=== PATIENT | female | born 1930 | race Caucasian/White ===

== ENCOUNTER 2017-07-15 15:44 | Emergency (ER) | payer MEDICARE, OTHER ==
[~2017-07-15] VITALS: Ht 162.6 cm; Wt 90.9 kg
[~2017-07-15 15:44] MED LIST: GABA-530 PO; VALA10002 PO
[2017-07-15 18:01] LABS: C-REACTIVE PROTEIN 0.13 MG/DL (0.0-0.5)
[2017-07-15] MEDS ORDERED: CEPH500C5 PO (18:24)
[2017-07-15 18:34] VITALS: BP 139/72
== END 2017-07-15 18:36 | disposition home or self-care (01) ==
LOC: ER 15:45
DX: L03.116 Cellulitis of left lower limb (principal); I83.92 Asymptomatic varicose veins of left lower extremity; E11.9 Type 2 diabetes mellitus without complications; I10 Essential (primary) hypertension; I48.91 Unspecified atrial fibrillation; G89.29 Other chronic pain; Z88.2 Allergy status to sulfonamides; Z88.6 Allergy status to analgesic agent; Z88.1 Allergy status to other antibiotic agents; Z88.5 Allergy status to narcotic agent; Z88.8 Allergy status to other drugs, medicaments and biological substances
CPT/HCPCS: 36415; 73610; 84145; 84550; 86140; 93971; 99285

== ENCOUNTER 2018-03-08 23:25 | Emergency (ER) | payer MEDICARE, OTHER ==
[~2018-03-08] VITALS: Ht 162.6 cm; Wt 78.0 kg
[~2018-03-08 23:25] MED LIST changes: +CEPH500C5 PO
[2018-03-09 00:48] LABS: BASOPHILS # (AUTO) 0.1 X10'3 (0-0.2); BASOPHILS % (AUTO) 0.7 % (0-1); EOSINOPHILS # (AUTO) 0.5 X10'3 (0-0.9); EOSINOPHILS % (AUTO) 5.7 % (0-6); HEMATOCRIT 42.3 % (35.0-45.0); HEMOGLOBIN 13.7 g/dl (12.0-16.0); LYMPHOCYTES # (AUTO) 1.8 X10'3 (1.1-4.8); LYMPHOCYTES % (AUTO) 20.4 % (21-51); MEAN CORPUSCULAR HEMOGLOBIN 30.3 PG (27.0-31.0); MEAN CORPUSCULAR HGB CONC 32.5 % (33.0-36.5); MEAN CORPUSCULAR VOLUME 93.3 FL (78-98); MONOCYTES # (AUTO) 0.9 X10'3 (0-0.9); MONOCYTES % (AUTO) 10.2 % (2-12); NEUTROPHILS # (AUTO) 5.4 X10'3 (1.8-7.7); PLATELET COUNT 195 X10'3 (140-440); RED BLOOD COUNT 4.54 X10'6 (4.20-5.60); RED CELL DISTRIBUTION WIDTH 12.5 % (11.5-14.5); WHITE BLOOD COUNT 8.7 X10'3 (4.5-11.0)
[2018-03-09 00:56] LABS: INR 1.1 INR; PROTHROMBIN TIME 11.3 SECONDS (9.0-12.0)
[2018-03-09 01:00] LABS: ALANINE AMINOTRANSFERASE 22 U/L (12-78); ALBUMIN 3.6 G/DL (3.4-5.0); ALBUMIN/GLOBULIN RATIO 1.1 (1.1-1.5); ALKALINE PHOSPHATASE 101 IU/L (46-116); ANION GAP 10 (8-16); ASPARTATE AMINO TRANSFERASE 18 U/L (10-37); BILIRUBIN,TOTAL 0.9 MG/DL (0.1-1.0); BLOOD UREA NITROGEN 19 MG/DL (7-18); CALCIUM 9.4 MG/DL (8.5-10.1); CHLORIDE 104 MMOL/L (99-107); CREATININE 0.73 MG/DL (0.40-0.90); GLUCOSE 207 MG/DL (70-104); POTASSIUM 4.2 MMOL/L (3.5-5.1); SODIUM 139 MMOL/L (135-145); TOTAL CARBON DIOXIDE 25.4 MMOL/L (24-32); TOTAL PROTEIN 6.9 G/DL (6.4-8.2); eGFR 76 ML/MIN
[2018-03-09 02:05] VITALS: BP 138/63
== END 2018-03-09 02:05 | disposition home or self-care (01) ==
LOC: ER 23:25
DX: S43.402A Unspecified sprain of left shoulder joint, initial encounter (principal); R07.89 Other chest pain; G89.29 Other chronic pain; I48.91 Unspecified atrial fibrillation; I10 Essential (primary) hypertension; E11.9 Type 2 diabetes mellitus without complications; Z88.2 Allergy status to sulfonamides; Z88.1 Allergy status to other antibiotic agents; Z88.6 Allergy status to analgesic agent; Z88.5 Allergy status to narcotic agent; X50.9XXA Other and unspecified overexertion or strenuous movements or postures, initial encounter; Y93.89 Activity, other specified; Y92.89 Other specified places as the place of occurrence of the external cause; Y99.8 Other external cause status
CPT/HCPCS: 36415; 71045; 73030; 73060; 73090; 80053; 82553; 83880; 84484; 85025; 85610; 93005; 99285

== ENCOUNTER 2018-10-31 03:11 | Outpatient (CLI) | payer MEDICARE, OTHER ==
[~2018-10-31 03:11] MED LIST changes: -CEPH500C5 PO
== END 2018-10-31 23:59 | disposition home or self-care (01) ==
LOC: DIABETIC 03:11
PROVIDERS: ATTEND Family Medicine
DX: E11.9 Type 2 diabetes mellitus without complications (principal); I10 Essential (primary) hypertension; Z79.82 Long term (current) use of aspirin; Z79.84 Long term (current) use of oral hypoglycemic drugs
CPT/HCPCS: G0108

== ENCOUNTER 2019-05-18 14:45 | Outpatient (CLI) | payer MEDICARE, OTHER | END 2019-05-18 23:59 | disposition home or self-care (01) | LOC: RAD 14:45 | PROVIDERS: ATTEND Family Medicine | DX: R19.00 Intra-abdominal and pelvic swelling, mass and lump, unspecified site (principal) | CPT/HCPCS: 76856 ==

== ENCOUNTER 2019-09-29 09:41 | Emergency (ER) | payer MEDICARE, OTHER ==
[~2019-09-29] VITALS: Ht 162.6 cm; Wt 85.9 kg
[2019-09-29 10:20] LABS: BASOPHILS # (AUTO) 0.1 X10'3 (0-0.2); BASOPHILS % (AUTO) 0.9 % (0-1); EOSINOPHILS # (AUTO) 0.2 X10'3 (0-0.9); HEMATOCRIT 40.1 % (35.0-45.0); HEMOGLOBIN 13.8 g/dl (12.0-16.0); LYMPHOCYTES # (AUTO) 1.6 X10'3 (1.1-4.8); LYMPHOCYTES % (AUTO) 18.1 % (21-51); MEAN CORPUSCULAR HEMOGLOBIN 31.4 PG (27.0-31.0); MEAN CORPUSCULAR HGB CONC 34.5 g/dL (33.0-36.5); MEAN PLATELET VOLUME 8.1 FL (7.4-10.4); MONOCYTES # (AUTO) 0.8 X10'3 (0-0.9); MONOCYTES % (AUTO) 9.5 % (2-12); NEUTROPHILS # (AUTO) 6.1 X10'3 (1.8-7.7); NEUTROPHILS % (AUTO) 69.5 % (42-75); PLATELET COUNT 201 X10'3 (140-440); RED BLOOD COUNT 4.41 X10'6 (4.20-5.60); RED CELL DISTRIBUTION WIDTH 13.7 % (11.5-14.5); WHITE BLOOD COUNT 8.8 X10'3 (4.5-11.0)
[2019-09-29 10:36] LABS: ALANINE AMINOTRANSFERASE 9 U/L (12-78); ALBUMIN 3.8 G/DL (3.4-5.0); ALBUMIN/GLOBULIN RATIO 1.2 (1.1-1.5); ALKALINE PHOSPHATASE 84 IU/L (46-116); ANION GAP 9 (8-16); BILIRUBIN,TOTAL 1.2 MG/DL (0.1-1.0); BLOOD UREA NITROGEN 19 MG/DL (7-18); BUN/CREATININE RATIO 25.3 (6.6-38.0); CHLORIDE 105 MMOL/L (99-107); CREATININE 0.75 MG/DL (0.40-0.90); GLUCOSE 175 MG/DL (70-104); SODIUM 139 MMOL/L (135-145); TOTAL CARBON DIOXIDE 25.5 MMOL/L (24-32); TOTAL PROTEIN 7.1 G/DL (6.4-8.2); eGFR 73 ML/MIN
[2019-09-29 10:37] LABS: ASPARTATE AMINO TRANSFERASE 30 U/L (10-37); POTASSIUM 4.5 MMOL/L (3.5-5.1)
[2019-09-29] MEDS ORDERED: furosemide 10 MG/1 ML 10ml inj IV ONE (12:05)
[2019-09-29] MEDS ORDERED: potassium chloride 8mEq ER tablet PO ONE (12:05)
[2019-09-29 13:05] VITALS: BP 156/72
== END 2019-09-29 13:07 | disposition home or self-care (01) ==
LOC: ER 09:42
DX: R42 Dizziness and giddiness (principal); I87.8 Other specified disorders of veins; R51 Headache; R60.9 Edema, unspecified; I48.91 Unspecified atrial fibrillation; I10 Essential (primary) hypertension; E11.9 Type 2 diabetes mellitus without complications; G89.29 Other chronic pain; Z88.1 Allergy status to other antibiotic agents; Z88.2 Allergy status to sulfonamides; Z88.5 Allergy status to narcotic agent; Z88.6 Allergy status to analgesic agent; Z88.8 Allergy status to other drugs, medicaments and biological substances; Z79.899 Other long term (current) drug therapy; Z56.0 Unemployment, unspecified; Z98.890 Other specified postprocedural states
CPT/HCPCS: 36415; 70450; 71045; 80053; 83880; 84484; 85025; 93005; 96374; 99285; J1940

== ENCOUNTER 2020-09-17 17:46 | Emergency (ER) | payer BC, MEDICARE ==
[~2020-09-17] VITALS: Ht 162.6 cm; Wt 84.1 kg
[2020-09-17 19:54] LABS: CLARITY,URINE CLEAR (Clear); COLOR,URINE YELLOW (Yellow); GLUCOSE, URINE NEGATIVE (Neg); KETONES,URINE NEGATIVE (Neg); LEUKOCYTE ESTERASE ,URINE NEGATIVE (Neg); NITRITES, URINE NEGATIVE (Neg); OCCULT BLOOD,URINE NEGATIVE (Neg); PROTEIN,URINE NEGATIVE (Neg); UROBILINOGEN,URINE 0.2 E.U/dL (0.2-1.0)
[2020-09-17 19:57] LABS: BASOPHILS % (AUTO) 0.5 % (0-1); EOSINOPHILS # (AUTO) 0.3 X10'3 (0-0.9); EOSINOPHILS % (AUTO) 4.2 % (0-6); HEMATOCRIT 40.2 % (35.0-45.0); HEMOGLOBIN 13.4 g/dl (12.0-16.0); LYMPHOCYTES # (AUTO) 1.5 X10'3 (1.1-4.8); LYMPHOCYTES % (AUTO) 21.4 % (21-51); MEAN CORPUSCULAR HEMOGLOBIN 30.4 PG (27.0-31.0); MEAN CORPUSCULAR HGB CONC 33.2 g/dL (33.0-36.5); MEAN CORPUSCULAR VOLUME 91.3 FL (78-98); MEAN PLATELET VOLUME 8.2 FL (7.4-10.4); MONOCYTES # (AUTO) 0.8 X10'3 (0-0.9); MONOCYTES % (AUTO) 11.5 % (2-12); NEUTROPHILS # (AUTO) 4.4 X10'3 (1.8-7.7); NEUTROPHILS % (AUTO) 62.4 % (42-75); PLATELET COUNT 178 X10'3 (140-440); RED CELL DISTRIBUTION WIDTH 13.2 % (11.5-14.5)
[2020-09-17 20:00] LABS: UA COLLECTION TYPE OTHER
[2020-09-17 20:06] LABS: ALANINE AMINOTRANSFERASE 27 U/L (12-78); ALBUMIN 3.7 G/DL (3.4-5.0); ALBUMIN/GLOBULIN RATIO 1.1 (1.1-1.5); ALKALINE PHOSPHATASE 90 IU/L (46-116); ANION GAP 8 (8-16); ASPARTATE AMINO TRANSFERASE 24 U/L (10-37); BILIRUBIN,TOTAL 1.3 MG/DL (0.1-1.0); BLOOD UREA NITROGEN 18 MG/DL (7-18); BUN/CREATININE RATIO 25.7 (6.6-38.0); CALCIUM 9.4 MG/DL (8.5-10.1); CHLORIDE 106 MMOL/L (99-107); GLUCOSE 151 MG/DL (70-104); POTASSIUM 4.1 MMOL/L (3.5-5.1); SODIUM 142 MMOL/L (135-145); TOTAL CARBON DIOXIDE 27.8 MMOL/L (24-32); TOTAL PROTEIN 7.1 G/DL (6.4-8.2); eGFR 79 ML/MIN
[2020-09-17 22:03] VITALS: BP 160/80
== END 2020-09-17 22:05 | disposition home or self-care (01) ==
LOC: ER 17:47
DX: I11.0 Hypertensive heart disease with heart failure (principal); I50.9 Heart failure, unspecified; I48.91 Unspecified atrial fibrillation; E11.9 Type 2 diabetes mellitus without complications; G89.29 Other chronic pain; Z98.890 Other specified postprocedural states; Z60.2 Problems related to living alone; Z88.2 Allergy status to sulfonamides; Z88.1 Allergy status to other antibiotic agents; Z88.5 Allergy status to narcotic agent; Z88.8 Allergy status to other drugs, medicaments and biological substances; Z79.2 Long term (current) use of antibiotics; Z79.899 Other long term (current) drug therapy
CPT/HCPCS: 36415; 71045; 80053; 81003; 83880; 84484; 85025; 93005; 99285

== ENCOUNTER 2020-09-27 10:59 | Emergency (ER) | payer BC ==
[~2020-09-27] VITALS: Ht 162.6 cm; Wt 83.6 kg
[2020-09-27 12:38] LABS: BASOPHILS # (AUTO) 0.1 X10'3 (0-0.2); BASOPHILS % (AUTO) 0.8 % (0-1); EOSINOPHILS # (AUTO) 0.2 X10'3 (0-0.9); EOSINOPHILS % (AUTO) 3.8 % (0-6); HEMATOCRIT 39.2 % (35.0-45.0); HEMOGLOBIN 13.1 g/dl (12.0-16.0); LYMPHOCYTES # (AUTO) 1.2 X10'3 (1.1-4.8); LYMPHOCYTES % (AUTO) 18.4 % (21-51); MEAN CORPUSCULAR HEMOGLOBIN 30.6 PG (27.0-31.0); MEAN CORPUSCULAR HGB CONC 33.4 g/dL (33.0-36.5); MEAN CORPUSCULAR VOLUME 91.5 FL (78-98); MEAN PLATELET VOLUME 8.3 FL (7.4-10.4); MONOCYTES # (AUTO) 0.9 X10'3 (0-0.9); MONOCYTES % (AUTO) 13.3 % (2-12); NEUTROPHILS # (AUTO) 4.1 X10'3 (1.8-7.7); NEUTROPHILS % (AUTO) 63.7 % (42-75); PLATELET COUNT 184 X10'3 (140-440); RED BLOOD COUNT 4.28 X10'6 (4.20-5.60); RED CELL DISTRIBUTION WIDTH 13.3 % (11.5-14.5); WHITE BLOOD COUNT 6.4 X10'3 (4.5-11.0)
[2020-09-27 12:53] LABS: ALANINE AMINOTRANSFERASE 28 U/L (12-78); ALBUMIN 3.5 G/DL (3.4-5.0); ALBUMIN/GLOBULIN RATIO 1.1 (1.1-1.5); ALKALINE PHOSPHATASE 92 IU/L (46-116); ANION GAP 7 (8-16); ASPARTATE AMINO TRANSFERASE 19 U/L (10-37); BILIRUBIN,TOTAL 1.1 MG/DL (0.1-1.0); BLOOD UREA NITROGEN 18 MG/DL (7-18); BUN/CREATININE RATIO 24.7 (6.6-38.0); CALCIUM 9.7 MG/DL (8.5-10.1); CHLORIDE 103 MMOL/L (99-107); CREATININE 0.73 MG/DL (0.40-0.90); GLUCOSE 159 MG/DL (70-104); POTASSIUM 4.3 MMOL/L (3.5-5.1); SODIUM 139 MMOL/L (135-145); TOTAL PROTEIN 6.8 G/DL (6.4-8.2); eGFR 75 ML/MIN
[2020-09-27 12:59] LABS: MAGNESIUM 1.9 MG/DL (1.5-2.4)
[2020-09-27 13:24] VITALS: BP 133/64
== END 2020-09-27 13:25 | disposition home or self-care (01) ==
LOC: ER 10:59
DX: I11.0 Hypertensive heart disease with heart failure (principal); I50.9 Heart failure, unspecified; R51.9 Headache, unspecified; E11.9 Type 2 diabetes mellitus without complications; G89.29 Other chronic pain; I48.91 Unspecified atrial fibrillation; Z60.2 Problems related to living alone; Z88.2 Allergy status to sulfonamides; Z88.6 Allergy status to analgesic agent; Z79.899 Other long term (current) drug therapy
CPT/HCPCS: 36415; 71045; 80053; 83735; 83880; 84484; 85025; 93005; 99285

== ENCOUNTER 2021-06-15 22:31 | Inpatient (IN) | payer BC ==
[~2021-06-15] VITALS: Ht 162.6 cm; Wt 81.0 kg
[2021-06-15] MEDS ORDERED: normal saline 1000ml 1,000 ML IV ONE (22:45)
[2021-06-15] MEDS ORDERED: iohexol 300mg/ml 100ml inj. ONE (23:04)
[2021-06-15] MEDS ORDERED: piperacillin/tazo 4.5gm/100ml 100 ML IV STA (23:10)
[2021-06-15 23:12] LABS: BASOPHILS # (AUTO) 0.2 X10'3 (0-0.2); EOSINOPHILS # (AUTO) 0.2 X10'3 (0-0.9); HEMOGLOBIN 10.9 g/dl (12.0-16.0); LYMPHOCYTES # (AUTO) 0.4 X10'3 (1.1-4.8); LYMPHOCYTES % (AUTO) 2.8 % (21-51); MEAN CORPUSCULAR HEMOGLOBIN 26.8 PG (27.0-31.0); MEAN CORPUSCULAR VOLUME 81.1 FL (78-98); MONOCYTES # (AUTO) 0.7 X10'3 (0-0.9); MONOCYTES % (AUTO) 4.4 % (2-12); NEUTROPHILS # (AUTO) 14.3 X10'3 (1.8-7.7); NEUTROPHILS % (AUTO) 90.8 % (42-75); PLATELET COUNT 246 X10'3 (140-440); RED BLOOD COUNT 4.07 X10'6 (4.20-5.60); RED CELL DISTRIBUTION WIDTH 14.5 % (11.5-14.5); WHITE BLOOD COUNT 15.7 X10'3 (4.5-11.0)
[2021-06-15 23:17] LABS: ALANINE AMINOTRANSFERASE 26 U/L (12-78); ALBUMIN 3.8 G/DL (3.4-5.0); ALBUMIN/GLOBULIN RATIO 1.1 (1.1-1.5); ALKALINE PHOSPHATASE 102 IU/L (46-116); ANION GAP 11 (8-16); ASPARTATE AMINO TRANSFERASE 22 U/L (10-37); BLOOD UREA NITROGEN 19 MG/DL (7-18); BUN/CREATININE RATIO 20.7 (6.6-38.0); CALCIUM 9.3 MG/DL (8.5-10.1); CHLORIDE 100 MMOL/L (99-107); CREATININE 0.92 MG/DL (0.40-0.90); GLUCOSE 319 MG/DL (70-104); POTASSIUM 4.1 MMOL/L (3.5-5.1); SODIUM 136 MMOL/L (135-145); TOTAL PROTEIN 7.3 G/DL (6.4-8.2); eGFR 58 ML/MIN
[2021-06-15 23:19] LABS: BILIRUBIN,DIRECT 0.3 MG/DL (0-0.3); LIPASE 156 U/L (73-393)
--- NOTE | 2021-06-15 23:54 | NUR ---
UPDATED DAUGHTER, LUNA, ON PT'S STATUS. PHONE NUMBER IS [phone]
[2021-06-16 00:27] LABS: PLATELET ESTIMATE NORMAL; TOTAL CELLS COUNTED 100
[2021-06-16 00:35] LABS: COLOR,URINE YELLOW (Yellow); GLUCOSE, URINE >=1000 mg/dl (Neg); KETONES,URINE 15 mg/dl (Neg); LEUKOCYTE ESTERASE ,URINE NEGATIVE (Neg); NITRITES, URINE POSITIVE (Neg); OCCULT BLOOD,URINE NEGATIVE (Neg); PH,URINE 5.5 (4.8-8.0); PROTEIN,URINE TRACE mg/dl (Neg); UROBILINOGEN,URINE 0.2 E.U/dL (0.2-1.0)
[2021-06-16 00:46] LABS: UA COLLECTION TYPE OTHER
[2021-06-16 00:47] LABS: BACTERIA,URINE 1+ /HPF (Neg); CLARITY,URINE SLIGHTLY CLOUDY (Clear); RBC,URINE NONE SEEN /HPF (0-2); SQUAMOUS EPITHELIAL CELL,UR FEW /LPF (FEW); WBC,URINE 0-4 /HPF (0-4)
[2021-06-16] MEDS ORDERED: HYDROcodone/acetaminophen 5mg/325mg tablet PO PRN (01:20)
[2021-06-16] MEDS ORDERED: ondansetron/PF 4mg/2ml inj IV PRN (01:20)
[2021-06-16] MEDS ORDERED: potassium CL 10mEq/100ml bag 100 ML IV PRN (01:20)
[2021-06-16] MEDS ORDERED: morphine 2 MG/ML inj. syringe IV PRN (01:20)
[2021-06-16] MEDS ORDERED: acetaminophen 325mg tablet PO PRN (01:20)
[2021-06-16] MEDS ORDERED: magnesium 4gm in 100ml NS 100 ML IV PRN (01:20)
[2021-06-16] MEDS ORDERED: potassium Cl 20 mEq SR tablet PO PRN ×2 (01:20)
[2021-06-16] MEDS ORDERED: magnesium 2GM in 50ml NS 50 ML IV PRN (01:20)
[2021-06-16] MEDS ORDERED: magnesium Cl slow-release 64mg tablet PO PRN (01:20)
[2021-06-16] MEDS: normal saline 1000ml 1,000 ML IV SCH ×2 (01:20→21:20)
[2021-06-16] MEDS ORDERED: glucagon, human recombinant 1mg kit SUBCUT PRN (02:10)
[2021-06-16] MEDS ORDERED: dextrose 50%-water 50ml dispensing syringe IV PRN ×2 (02:10)
[2021-06-16] MEDS ORDERED: dextrose ORAL solution 15 GM/59 ML bottle PO PRN ×2 (02:10)
[2021-06-16] MEDS ORDERED: MESSAGE TO PHARMACY PO ONE (02:10)
[2021-06-16 02:51] LABS: MAGNESIUM 1.8 MG/DL (1.5-2.4); POTASSIUM 3.8 MMOL/L (3.5-5.1)
--- NOTE | 2021-06-16 03:15 | NUR ---
PAGED DR RIOJAS TO REPORT CRITICAL TROPONIN RESULT
--- NOTE | 2021-06-16 04:04 | NUR ---
DR RIOJAS SENT A SECOND PAGE TO INFORM OF CRITICAL TROPONIN RESULT
--- NOTE | 2021-06-16 04:09 | NUR ---
DR RIOJAS CALLED. I WAS ABLE TO REPORT TROPONIN RESULTS
--- NOTE | 2021-06-16 06:54 | NUR ---
bike technician at bedside .was concern about bladder stating pt is retaining ,pt has 160 ml in bladder with scanning .informed its okay.
[2021-06-16] MEDS: K and/or MAG REPLACEMENT MC SCH ×2 (07:52→23:22)
[2021-06-16] MEDS ORDERED: azithromycin/NS 500mg/250ml 250 ML IV SCH (08:00)
[2021-06-16] MEDS: CefTRIAXone 2gm/D5W 50ml BAG 50 ML IV SCH (08:10)
[2021-06-16] MEDS: heparin, porcine 5000 units/ml vial SQ SCH ×2 (08:10→16:13)
[2021-06-16] MEDS: furosemide 40mg/4ml inj IV SCH (08:10)
--- NOTE | 2021-06-16 08:30 | NUR ---
paged dr fely pierre patient trop 6 hr 77 .made md aware.no new orders.
[2021-06-16] MEDS ORDERED: METF-438 PO (10:00)
[2021-06-16] MEDS ORDERED: APIX5TAB3 PO (10:00)
[2021-06-16] MEDS ORDERED: METO50TA16 PO (10:00)
[2021-06-16] MEDS ORDERED: ISOS30TA84 PO (10:00)
[2021-06-16] MEDS ORDERED: GABA-530 PO (10:00)
[2021-06-16] MEDS ORDERED: LOSA100T57 PO (10:00)
[2021-06-16] MEDS ORDERED: ATOR10TA70 PO (10:00)
[2021-06-16] MEDS: losartan 50mg tablet PO SCH (10:56)
[2021-06-16] MEDS: atorvastatin 10mg tablet PO SCH (10:57)
[2021-06-16] MEDS: gabapentin 300mg capsule PO SCH (10:57)
[2021-06-16] MEDS: insulin Lispro (HumaLOG) vial - multi-dose SQ SCH ×3 (10:58→19:34)
--- NOTE | 2021-06-16 11:00 | NUR ---
pt has a bm ,pt daughter at bedside,medicated with scgheduled meds.will cont to monitor.
--- NOTE | 2021-06-16 12:28 | NUR ---
TRIED TO GIVE REPORT RN IS BUSY AT THIS TIME CALL ME BACK IN 5-10 MIN ,GRACIELA VILLA WILL BE TAKING REPORT PER CONTROL ROOM AGENT.
[2021-06-16] MEDS ORDERED: CHOL200074 PO (12:39)
--- NOTE | 2021-06-16 13:24 | NUR ---
HEART HEALTHY MEAL TRAY GIVEN TO PATIENT.
--- NOTE | 2021-06-16 18:12 | NUR ---
Patient in room JUAN M 357A. I have received report from GRACIELA Cheung and had the opportunity to ask questions and assume patient care.
[2021-06-16 19:00] VITALS: BP 131/50
[2021-06-16] MEDS: lactobacillus rhamnosus 10,000 MMU CELLS/CAPSULE PO SCH (19:21)
[2021-06-16] MEDS: metoprolol tartrate 50mg tablet PO SCH (19:22)
[2021-06-16] MEDS ORDERED: temazepam 15mg capsule PO PRN (21:00)
[2021-06-16] MEDS: insulin glargine (Lantus) pen - multi-dose SQ SCH (21:52)
[2021-06-17] VITALS: BP 127/50
[2021-06-17] MEDS: heparin, porcine 5000 units/ml vial SQ SCH ×3 (00:12→16:34)
[2021-06-17 06:35] LABS: BASOPHILS # (AUTO) 0.1 X10'3 (0-0.2); BASOPHILS % (AUTO) 0.4 % (0-1); EOSINOPHILS # (AUTO) 0.2 X10'3 (0-0.9); EOSINOPHILS % (AUTO) 1.5 % (0-6); LYMPHOCYTES # (AUTO) 1.5 X10'3 (1.1-4.8); LYMPHOCYTES % (AUTO) 10.6 % (21-51); MEAN CORPUSCULAR HEMOGLOBIN 26.3 PG (27.0-31.0); MEAN CORPUSCULAR HGB CONC 32.3 g/dL (33.0-36.5); MEAN CORPUSCULAR VOLUME 81.6 FL (78-98); MEAN PLATELET VOLUME 8.7 FL (7.4-10.4); MONOCYTES # (AUTO) 1.8 X10'3 (0-0.9); MONOCYTES % (AUTO) 12.5 % (2-12); NEUTROPHILS # (AUTO) 10.7 X10'3 (1.8-7.7); PLATELET COUNT 201 X10'3 (140-440); RED CELL DISTRIBUTION WIDTH 14.7 % (11.5-14.5); WHITE BLOOD COUNT 14.3 X10'3 (4.5-11.0)
[2021-06-17 06:44] LABS: ALANINE AMINOTRANSFERASE 27 U/L (12-78); ALBUMIN 2.8 G/DL (3.4-5.0); ALBUMIN/GLOBULIN RATIO 0.8 (1.1-1.5); ALKALINE PHOSPHATASE 75 IU/L (46-116); ANION GAP 6 (8-16); ASPARTATE AMINO TRANSFERASE 25 U/L (10-37); BILIRUBIN,TOTAL 0.9 MG/DL (0.1-1.0); BLOOD UREA NITROGEN 25 MG/DL (7-18); BUN/CREATININE RATIO 28.7 (6.6-38.0); CALCIUM 8.7 MG/DL (8.5-10.1); CHLORIDE 103 MMOL/L (99-107); CREATININE 0.87 MG/DL (0.40-0.90); GLUCOSE 129 MG/DL (70-104); POTASSIUM 3.9 MMOL/L (3.5-5.1); SODIUM 137 MMOL/L (135-145); TOTAL CARBON DIOXIDE 28.1 MMOL/L (24-32); TOTAL PROTEIN 6.2 G/DL (6.4-8.2); eGFR 61 ML/MIN
--- NOTE | 2021-06-17 06:46 | NUR ---
Problems reprioritized. Patient report given, questions answered & plan of care reviewed with GRACIELA Stevenson.
--- NOTE | 2021-06-17 06:48 | NUR ---
Student documentation: I have reviewed and agree with all interventions, assessments performed and documented by Saul Student Nurse.
--- NOTE | 2021-06-17 07:02 | NUR ---
Patient in room JUAN M 357. I have received report from GRACIELA Bear and had the opportunity to ask questions and assume patient care.
--- NOTE | 2021-06-17 07:24 | NUR ---
Patient in room JUAN M 357. I have received report from GRACIELA Stevenson and had the opportunity to ask questions and assume patient care.
[2021-06-17 07:25] VITALS: BP 144/57
[2021-06-17] MEDS: furosemide 40mg/4ml inj IV SCH (07:47)
[2021-06-17] MEDS: CefTRIAXone 2gm/D5W 50ml BAG 50 ML IV SCH (07:47)
[2021-06-17] MEDS: atorvastatin 10mg tablet PO SCH (07:55)
[2021-06-17] MEDS: lactobacillus rhamnosus 10,000 MMU CELLS/CAPSULE PO SCH ×2 (07:55→20:13)
[2021-06-17] MEDS: losartan 50mg tablet PO SCH (07:55)
[2021-06-17] MEDS: metoprolol tartrate 50mg tablet PO SCH ×2 (07:56→20:13)
[2021-06-17] MEDS: gabapentin 300mg capsule PO SCH (07:57)
[2021-06-17] MEDS: K and/or MAG REPLACEMENT MC SCH ×2 (08:00→20:00)
[2021-06-17] MEDS: acetaminophen 325mg tablet PO PRN ×2 (08:10→20:34)
--- NOTE | 2021-06-17 09:27 | NUR ---
Diabetes consult: Pt admitted w/ increasing abd pain w/ dx of bilateral pleural effusion secondary to CHF w/ hx of Afib, HTN, and DM per EMR. Noted A1C 7.8 which is appropriate for age, DM education not indicated at this time. Pt currently on Heart Healthy diet w/ 50% intake of first meal. Recommend diet change to [facility] [place] if MD agreeable. No BM documented. Noted w/ skin tear to L ankle, no edema. Will continue to monitor. Addendum: 06/17/21 at [address] Amended: Links added.
[2021-06-17 11:00] VITALS: BP 134/55
--- NOTE | 2021-06-17 11:32 | NUR ---
Student documentation: I have reviewed and agree with all interventions, assessments performed and documented by Yolette, nursing clerk.
--- NOTE | 2021-06-17 11:33 | NUR ---
Student Medication Administration: For this medication-pass time frame, all medication were reviewed, dispensed, administered and documented per hospital policy by iesha De La Vega.
--- NOTE | 2021-06-17 11:50 | NUR ---
Problems reprioritized. Patient report given, questions answered & plan of care reviewed with GRACIELA Stevenson.
[2021-06-17] MEDS: normal saline 1000ml 1,000 ML IV SCH (12:10)
[2021-06-17] MEDS: insulin Lispro (HumaLOG) vial - multi-dose SQ SCH ×2 (13:35→19:01)
[2021-06-17 18:30] VITALS: BP 152/64
--- NOTE | 2021-06-17 18:32 | NUR ---
Problems reprioritized. Patient report given, questions answered & plan of care reviewed with GRACIELA Casper.
--- NOTE | 2021-06-17 18:35 | NUR ---
Patient in room JUAN M 357. I have received report from Elva OWENS and had the opportunity to ask questions and assume patient care.
[2021-06-17] MEDS ORDERED: gabapentin 300mg capsule PO SCH (21:00)
[2021-06-17] MEDS: insulin glargine (Lantus) pen - multi-dose SQ SCH (21:42)
[2021-06-18] VITALS: BP 130/53
[2021-06-18] MEDS: heparin, porcine 5000 units/ml vial SQ SCH ×2 (00:58→08:12)
[2021-06-18 06:41] LABS: BASOPHILS # (AUTO) 0.1 X10'3 (0-0.2); BASOPHILS % (AUTO) 0.7 % (0-1); EOSINOPHILS # (AUTO) 0.3 X10'3 (0-0.9); EOSINOPHILS % (AUTO) 3.2 % (0-6); HEMATOCRIT 31.5 % (35.0-45.0); HEMOGLOBIN 10.3 g/dl (12.0-16.0); LYMPHOCYTES # (AUTO) 1.4 X10'3 (1.1-4.8); LYMPHOCYTES % (AUTO) 14.6 % (21-51); MEAN CORPUSCULAR HEMOGLOBIN 26.5 PG (27.0-31.0); MEAN CORPUSCULAR HGB CONC 32.6 g/dL (33.0-36.5); MEAN CORPUSCULAR VOLUME 81.3 FL (78-98); MEAN PLATELET VOLUME 8.4 FL (7.4-10.4); MONOCYTES # (AUTO) 1.3 X10'3 (0-0.9); NEUTROPHILS # (AUTO) 6.7 X10'3 (1.8-7.7); NEUTROPHILS % (AUTO) 68.5 % (42-75); PLATELET COUNT 216 X10'3 (140-440); RED BLOOD COUNT 3.88 X10'6 (4.20-5.60); RED CELL DISTRIBUTION WIDTH 14.5 % (11.5-14.5); WHITE BLOOD COUNT 9.8 X10'3 (4.5-11.0)
[2021-06-18 07:00] VITALS: BP 137/74
[2021-06-18 07:11] LABS: ALANINE AMINOTRANSFERASE 27 U/L (12-78); ALBUMIN 2.7 G/DL (3.4-5.0); ALBUMIN/GLOBULIN RATIO 0.6 (1.1-1.5); ALKALINE PHOSPHATASE 83 IU/L (46-116); ANION GAP 8 (8-16); ASPARTATE AMINO TRANSFERASE 22 U/L (10-37); BILIRUBIN,TOTAL 0.7 MG/DL (0.1-1.0); BLOOD UREA NITROGEN 22 MG/DL (7-18); BUN/CREATININE RATIO 30.6 (6.6-38.0); CALCIUM 9.1 MG/DL (8.5-10.1); CHLORIDE 106 MMOL/L (99-107); CREATININE 0.72 MG/DL (0.40-0.90); GLUCOSE 103 MG/DL (70-104); POTASSIUM 3.9 MMOL/L (3.5-5.1); SODIUM 142 MMOL/L (135-145); TOTAL CARBON DIOXIDE 28.4 MMOL/L (24-32); TOTAL PROTEIN 7.1 G/DL (6.4-8.2); eGFR 76 ML/MIN
[2021-06-18] MEDS: K and/or MAG REPLACEMENT MC SCH ×2 (08:00→20:00)
[2021-06-18] MEDS: CefTRIAXone 2gm/D5W 50ml BAG 50 ML IV SCH (08:07)
[2021-06-18] MEDS: furosemide 40mg/4ml inj IV SCH ×2 (08:09→21:05)
[2021-06-18] MEDS: lactobacillus rhamnosus 10,000 MMU CELLS/CAPSULE PO SCH ×2 (08:09→21:03)
[2021-06-18] MEDS: metoprolol tartrate 50mg tablet PO SCH ×2 (08:11→21:04)
[2021-06-18] MEDS: losartan 50mg tablet PO SCH (08:11)
[2021-06-18] MEDS: atorvastatin 10mg tablet PO SCH (08:12)
[2021-06-18] MEDS ORDERED: furosemide 40mg/4ml inj IV ONE (08:20)
[2021-06-18] MEDS: vancomycin/NS 1 GM ADD-VANTAGE 250 ML X 1 DOSE IV SCH (09:34)
[2021-06-18] MEDS ORDERED: PERFLUTREN PROTEIN-A MICROSPHR (Optison) 0.22 MG/ML 3ML VIAL IV PRN (09:45)
[2021-06-18 11:00] VITALS: BP 101/47
--- NOTE | 2021-06-18 11:10 | NUR ---
message to dr sales "PAGER ID: [phone] MESSAGE: pt has a-fib would you like her Eliquis to be restarted and heparin to be d/c'd ? [id number] foster"
--- NOTE | 2021-06-18 11:30 | NUR ---
VO from dr sales for swallow eval and also made aware of concern with a-fib and continuing eliquis and home HTN/heart meds. to check med rec and place appropriate orders
[2021-06-18] MEDS: normal saline 1000ml 1,000 ML IV SCH (16:21)
[2021-06-18] MEDS: acetaminophen 325mg tablet PO PRN (16:21)
--- NOTE | 2021-06-18 18:04 | NUR ---
message to dr sales "can you please order the patients home eye drops "theratears extra dry eye therapy". pt daughter has them at bedside [id number] natty Arrington rn 1645"
--- NOTE | 2021-06-18 18:06 | NUR ---
dr sales returned message with call to rn to give TO for home eyedrops
--- NOTE | 2021-06-18 18:15 | NUR ---
Patient in room JUAN M 357. I have received report from Nury Ascencio RN and had the opportunity to ask questions and assume patient care.
[2021-06-18] MEDS ORDERED: CARB15DR58 EACHEYE (18:42)
[2021-06-18] MEDS: insulin Lispro (HumaLOG) vial - multi-dose SQ SCH (18:46)
[2021-06-18 19:48] VITALS: BP 136/55
[2021-06-18] MEDS: gabapentin 300mg capsule PO SCH (21:04)
[2021-06-18] MEDS: isosorbide mononitrate 30mg tab.SR.24H PO SCH (21:04)
[2021-06-18] MEDS: apixaban 5mg tablet PO SCH (21:04)
[2021-06-18] MEDS: insulin glargine (Lantus) pen - multi-dose SQ SCH (21:53)
[2021-06-18] MEDS ORDERED: magnesium hydroxide 30ml (MOM) UD suspension PO ONE (21:55)
[2021-06-18] MEDS ORDERED: PEG 400/HYPROMELLOSE/GLYCERIN 15ml bottle EACHEYE PRN (22:15)
[2021-06-19 00:01] VITALS: BP 122/60
--- NOTE | 2021-06-19 06:20 | NUR ---
Problems reprioritized. Patient report given, questions answered & plan of care reviewed with Nury OWENS.
[2021-06-19 07:00] VITALS: BP 134/69
[2021-06-19 07:08] LABS: ALANINE AMINOTRANSFERASE 25 U/L (12-78); ALBUMIN 2.6 G/DL (3.4-5.0); ALBUMIN/GLOBULIN RATIO 0.8 (1.1-1.5); ALKALINE PHOSPHATASE 87 IU/L (46-116); ANION GAP 6 (8-16); ASPARTATE AMINO TRANSFERASE 19 U/L (10-37); BILIRUBIN,TOTAL 0.7 MG/DL (0.1-1.0); BLOOD UREA NITROGEN 17 MG/DL (7-18); BUN/CREATININE RATIO 26.6 (6.6-38.0); CALCIUM 8.7 MG/DL (8.5-10.1); CHLORIDE 107 MMOL/L (99-107); CREATININE 0.64 MG/DL (0.40-0.90); GLUCOSE 102 MG/DL (70-104); POTASSIUM 3.7 MMOL/L (3.5-5.1); SODIUM 142 MMOL/L (135-145); eGFR 88 ML/MIN
[2021-06-19 07:21] LABS: BASOPHILS # (AUTO) 0.1 X10'3 (0-0.2); EOSINOPHILS # (AUTO) 0.4 X10'3 (0-0.9); HEMOGLOBIN 9.6 g/dl (12.0-16.0); LYMPHOCYTES # (AUTO) 1.4 X10'3 (1.1-4.8); MEAN PLATELET VOLUME 8.8 FL (7.4-10.4); MONOCYTES # (AUTO) 0.9 X10'3 (0-0.9); NEUTROPHILS # (AUTO) 3.9 X10'3 (1.8-7.7); WHITE BLOOD COUNT 6.7 X10'3 (4.5-11.0)
[2021-06-19 07:23] LABS: BASOPHILS % (AUTO) 0.8 % (0-1); EOSINOPHILS % (AUTO) 5.8 % (0-6); LYMPHOCYTES % (AUTO) 20.6 % (21-51); MEAN CORPUSCULAR HEMOGLOBIN 26.5 PG (27.0-31.0); MEAN CORPUSCULAR VOLUME 82.7 FL (78-98); NEUTROPHILS % (AUTO) 58.8 % (42-75); PLATELET COUNT 223 X10'3 (140-440); RED BLOOD COUNT 3.63 X10'6 (4.20-5.60)
[2021-06-19] MEDS: K and/or MAG REPLACEMENT MC SCH ×2 (08:00→20:00)
[2021-06-19] MEDS: CefTRIAXone 2gm/D5W 50ml BAG 50 ML IV SCH (08:36)
[2021-06-19] MEDS: losartan 50mg tablet PO SCH (08:40)
[2021-06-19] MEDS: isosorbide mononitrate 30mg tab.SR.24H PO SCH ×2 (08:40→19:44)
[2021-06-19] MEDS: cholecalciferol (vitamin D3) 1,000 unit (25mcg) tablet PO SCH (08:41)
[2021-06-19] MEDS: lactobacillus rhamnosus 10,000 MMU CELLS/CAPSULE PO SCH ×2 (08:41→19:47)
[2021-06-19] MEDS: atorvastatin 10mg tablet PO SCH (08:41)
[2021-06-19] MEDS: metoprolol tartrate 50mg tablet PO SCH ×2 (08:41→19:58)
[2021-06-19] MEDS: furosemide 40mg/4ml inj IV SCH ×2 (08:41→19:48)
[2021-06-19] MEDS: apixaban 5mg tablet PO SCH ×2 (08:42→19:44)
[2021-06-19] MEDS: vancomycin/NS 1 GM ADD-VANTAGE 250 ML X 1 DOSE IV SCH (08:42)
[2021-06-19 11:00] VITALS: BP 126/64
[2021-06-19] MEDS: acetaminophen 325mg tablet PO PRN ×2 (11:07→20:14)
[2021-06-19] MEDS: insulin Lispro (HumaLOG) vial - multi-dose SQ SCH ×2 (13:45→19:55)
--- NOTE | 2021-06-19 14:56 | NUR ---
Initial: Received DM consult which was addressed in previous RD assessment. Pt admitted w/ increasing abd pain w/ dx of bilateral pleural effusion secondary to CHF w/ hx of Afib, HTN, and DM per EMR, Pt now w/ sepsis per MD note. Pt currently on Heart Healthy/CCHO diet, seen by INSERTING OPERATOR 06/18 w/ recs for SB6. Pt w/ moderately low PO intake, avg 43% x 7 meals which meets 75% of est energy needs and 55% of est protein needs. Pt may benefit from Ensure High Protein TID to help meet increased protein needs; pending MD approval. LBM 06/17 receiving routine colace. Will continue to monitor and make recommendations appropriate. Recs: 1. Continue SB6/CCHO diet per INSERTING OPERATOR recs; remove Heart Healthy if MD agreeable 2. Ensure High Protein TID; pending MD verification 3. Bowel care per rx 4. Scaled wt this admit, subsequent weekly wts Addendum: 06/19/21 at [address] Amended: Links added.
[2021-06-19 18:00] VITALS: BP 160/68
[2021-06-19] MEDS: lactose-reduced food (Ensure High Protein) 237ml bottle PO SCH (18:00)
[2021-06-19] MEDS: gabapentin 300mg capsule PO SCH (20:00)
[2021-06-19] MEDS: insulin glargine (Lantus) pen - multi-dose SQ SCH (22:25)
[2021-06-20] VITALS: BP 134/56
[2021-06-20 06:19] LABS: BASOPHILS % (AUTO) 0.7 % (0-1); EOSINOPHILS # (AUTO) 0.4 X10'3 (0-0.9); HEMATOCRIT 30.3 % (35.0-45.0); HEMOGLOBIN 10.1 g/dl (12.0-16.0); LYMPHOCYTES # (AUTO) 1.4 X10'3 (1.1-4.8); LYMPHOCYTES % (AUTO) 21.7 % (21-51); MEAN CORPUSCULAR HEMOGLOBIN 26.9 PG (27.0-31.0); MEAN CORPUSCULAR HGB CONC 33.4 g/dL (33.0-36.5); MEAN CORPUSCULAR VOLUME 80.6 FL (78-98); MEAN PLATELET VOLUME 7.9 FL (7.4-10.4); MONOCYTES % (AUTO) 14.7 % (2-12); NEUTROPHILS # (AUTO) 3.7 X10'3 (1.8-7.7); NEUTROPHILS % (AUTO) 56.9 % (42-75); PLATELET COUNT 253 X10'3 (140-440); RED BLOOD COUNT 3.76 X10'6 (4.20-5.60); RED CELL DISTRIBUTION WIDTH 14.5 % (11.5-14.5); WHITE BLOOD COUNT 6.5 X10'3 (4.5-11.0)
[2021-06-20 06:35] LABS: ALANINE AMINOTRANSFERASE 27 U/L (12-78); ALBUMIN 2.7 G/DL (3.4-5.0); ALBUMIN/GLOBULIN RATIO 0.7 (1.1-1.5); ALKALINE PHOSPHATASE 95 IU/L (46-116); ANION GAP 4 (8-16); ASPARTATE AMINO TRANSFERASE 25 U/L (10-37); BILIRUBIN,TOTAL 0.6 MG/DL (0.1-1.0); BLOOD UREA NITROGEN 16 MG/DL (7-18); BUN/CREATININE RATIO 22.2 (6.6-38.0); CALCIUM 8.9 MG/DL (8.5-10.1); CHLORIDE 104 MMOL/L (99-107); CREATININE 0.72 MG/DL (0.40-0.90); GLUCOSE 146 MG/DL (70-104); POTASSIUM 3.8 MMOL/L (3.5-5.1); SODIUM 141 MMOL/L (135-145); TOTAL CARBON DIOXIDE 32.9 MMOL/L (24-32); TOTAL PROTEIN 6.4 G/DL (6.4-8.2); eGFR 76 ML/MIN
[2021-06-20 07:00] VITALS: BP 142/55
[2021-06-20] MEDS: K and/or MAG REPLACEMENT MC SCH (08:00)
[2021-06-20] MEDS: isosorbide mononitrate 30mg tab.SR.24H PO SCH (08:29)
[2021-06-20] MEDS: cholecalciferol (vitamin D3) 1,000 unit (25mcg) tablet PO SCH (08:29)
[2021-06-20] MEDS: apixaban 5mg tablet PO SCH (08:29)
[2021-06-20] MEDS: losartan 50mg tablet PO SCH (08:30)
[2021-06-20] MEDS: atorvastatin 10mg tablet PO SCH (08:30)
[2021-06-20] MEDS: lactobacillus rhamnosus 10,000 MMU CELLS/CAPSULE PO SCH (08:30)
[2021-06-20] MEDS: acetaminophen 325mg tablet PO PRN (08:30)
[2021-06-20] MEDS: metoprolol tartrate 50mg tablet PO SCH (08:30)
[2021-06-20] MEDS: CefTRIAXone 2gm/D5W 50ml BAG 50 ML IV SCH (08:31)
[2021-06-20] MEDS: furosemide 40mg/4ml inj IV SCH (08:31)
[2021-06-20] MEDS: lactose-reduced food (Ensure High Protein) 237ml bottle PO SCH ×2 (08:32→13:00)
[2021-06-20] MEDS ORDERED: VANCOMYCIN LEVEL IV ONE (09:30)
[2021-06-20 10:00] VITALS: BP 139/61
[2021-06-20] MEDS ORDERED: AMOX500C2 PO (11:57)
[2021-06-20] MEDS ORDERED: FURO20TA4 PO (11:58)
[2021-06-20] MEDS: insulin Lispro (HumaLOG) vial - multi-dose SQ SCH (13:48)
== END 2021-06-20 15:42 | disposition home health service (06) | DRG 871 ==
LOC: ER 22:32 → ED HOLD 06-16 01:25 → SUR 3N 06-16 13:45
PROVIDERS: ADMIT Internal Medicine; ATTEND Internal Medicine
PROC: BW211ZZ Computerized Tomography (CT Scan) of Abdomen and Pelvis using Low Osmolar Contrast (ICD-10-PCS; principal; 2021-06-15)
DX: A40.1 Sepsis due to streptococcus, group B (principal); I50.43 Acute on chronic combined systolic (congestive) and diastolic (congestive) heart failure; N39.0 Urinary tract infection, site not specified; I48.91 Unspecified atrial fibrillation; I11.0 Hypertensive heart disease with heart failure; G89.29 Other chronic pain; E78.5 Hyperlipidemia, unspecified; E11.42 Type 2 diabetes mellitus with diabetic polyneuropathy; R59.0 Localized enlarged lymph nodes; K42.9 Umbilical hernia without obstruction or gangrene; Z20.822 Contact with and (suspected) exposure to COVID-19; R93.89 Abnormal findings on diagnostic imaging of other specified body structures; M54.9 Dorsalgia, unspecified; S80.922A Unspecified superficial injury of left lower leg, initial encounter; X58.XXXA Exposure to other specified factors, initial encounter; Y93.89 Activity, other specified; Y92.89 Other specified places as the place of occurrence of the external cause; Y99.8 Other external cause status; Z88.1 Allergy status to other antibiotic agents; Z88.2 Allergy status to sulfonamides; Z88.8 Allergy status to other drugs, medicaments and biological substances; Z88.5 Allergy status to narcotic agent; Z88.6 Allergy status to analgesic agent; Z79.899 Other long term (current) drug therapy
CPT/HCPCS: 36415; 71045; 74177; 76830; 76856; 80048; 80053; 80076; 81001; 82948; 83036; 83605; 83690; 83735; 83880; 84132; 84484; 85007; 85025; 85651; 86301; 86304; 87040; 87077; 87186; 87635; 92508; 92616; 93005; 93306; 97110; 97161; 97530; 99285; C9803; G0378; J0696; J1644; J1815; J1940; J2543; J3370; J7030; Q9967

== ENCOUNTER 2021-07-17 08:40 | Emergency (ER) | payer BC ==
[~2021-07-17] VITALS: Ht 162.6 cm; Wt 81.8 kg
[~2021-07-17 08:40] MED LIST changes: +AMOX500C2 PO; +APIX5TAB3 PO; +ATOR10TA70 PO; +CARB15DR58 EACHEYE; +CHOL200074 PO; +FURO20TA4 PO; +ISOS30TA84 PO; +LOSA100T57 PO; +METF-438 PO; +METO50TA16 PO; -VALA10002 PO
[2021-07-17 08:54] VITALS: BP 149/61
[2021-07-17 09:29] LABS: BASOPHILS % (AUTO) 0.6 % (0-1); EOSINOPHILS # (AUTO) 0.2 X10'3 (0-0.9); EOSINOPHILS % (AUTO) 2.6 % (0-6); HEMATOCRIT 29.5 % (35.0-45.0); HEMOGLOBIN 9.6 g/dl (12.0-16.0); LYMPHOCYTES # (AUTO) 1.1 X10'3 (1.1-4.8); LYMPHOCYTES % (AUTO) 18.4 % (21-51); MEAN CORPUSCULAR HEMOGLOBIN 25.5 PG (27.0-31.0); MEAN CORPUSCULAR HGB CONC 32.6 g/dL (33.0-36.5); MEAN CORPUSCULAR VOLUME 78.1 FL (78-98); MEAN PLATELET VOLUME 7.8 FL (7.4-10.4); MONOCYTES # (AUTO) 0.6 X10'3 (0-0.9); MONOCYTES % (AUTO) 10.3 % (2-12); NEUTROPHILS # (AUTO) 4.2 X10'3 (1.8-7.7); NEUTROPHILS % (AUTO) 68.1 % (42-75); PLATELET COUNT 221 X10'3 (140-440); RED BLOOD COUNT 3.78 X10'6 (4.20-5.60); RED CELL DISTRIBUTION WIDTH 15.5 % (11.5-14.5); WHITE BLOOD COUNT 6.1 X10'3 (4.5-11.0)
[2021-07-17 09:42] LABS: ALANINE AMINOTRANSFERASE 22 U/L (12-78); ALBUMIN 3.6 G/DL (3.4-5.0); ALKALINE PHOSPHATASE 97 IU/L (46-116); ANION GAP 9 (8-16); ASPARTATE AMINO TRANSFERASE 21 U/L (10-37); BILIRUBIN,TOTAL 0.8 MG/DL (0.1-1.0); BLOOD UREA NITROGEN 23 MG/DL (7-18); BUN/CREATININE RATIO 32.4 (6.6-38.0); CALCIUM 9.4 MG/DL (8.5-10.1); CHLORIDE 104 MMOL/L (99-107); CREATININE 0.71 MG/DL (0.40-0.90); GLUCOSE 194 MG/DL (70-104); POTASSIUM 4.3 MMOL/L (3.5-5.1); SODIUM 141 MMOL/L (135-145); TOTAL CARBON DIOXIDE 28.2 MMOL/L (24-32); TOTAL PROTEIN 7.3 G/DL (6.4-8.2); eGFR 78 ML/MIN
== END 2021-07-17 11:56 | disposition home or self-care (01) ==
LOC: ER 08:41
DX: R00.2 Palpitations (principal); I48.91 Unspecified atrial fibrillation; I10 Essential (primary) hypertension; E11.9 Type 2 diabetes mellitus without complications; G89.29 Other chronic pain; Z98.890 Other specified postprocedural states; Z60.2 Problems related to living alone; Z88.2 Allergy status to sulfonamides; Z88.1 Allergy status to other antibiotic agents; Z88.8 Allergy status to other drugs, medicaments and biological substances; Z79.2 Long term (current) use of antibiotics; Z79.899 Other long term (current) drug therapy
CPT/HCPCS: 36415; 71045; 80053; 83880; 84484; 85025; 85610; 93005; 99285

== ENCOUNTER 2021-08-09 10:58 | Inpatient (IN) | payer BC ==
[~2021-08-09] VITALS: Ht 162.6 cm; Wt 81.0 kg
[2021-08-09 12:36] LABS: BASOPHILS % (AUTO) 0.5 % (0-1); EOSINOPHILS # (AUTO) 0.1 X10'3 (0-0.9); EOSINOPHILS % (AUTO) 1.5 % (0-6); HEMATOCRIT 30.3 % (35.0-45.0); HEMOGLOBIN 9.5 g/dl (12.0-16.0); LYMPHOCYTES # (AUTO) 0.5 X10'3 (1.1-4.8); LYMPHOCYTES % (AUTO) 6.1 % (21-51); MEAN CORPUSCULAR HGB CONC 31.4 g/dL (33.0-36.5); MEAN CORPUSCULAR VOLUME 76.5 FL (78-98); MONOCYTES # (AUTO) 1.3 X10'3 (0-0.9); MONOCYTES % (AUTO) 16.7 % (2-12); NEUTROPHILS # (AUTO) 5.7 X10'3 (1.8-7.7); NEUTROPHILS % (AUTO) 75.2 % (42-75); PLATELET COUNT 254 X10'3 (140-440); RED BLOOD COUNT 3.96 X10'6 (4.20-5.60); RED CELL DISTRIBUTION WIDTH 15.5 % (11.5-14.5); WHITE BLOOD COUNT 7.6 X10'3 (4.5-11.0)
[2021-08-09 13:11] LABS: ALANINE AMINOTRANSFERASE 22 U/L (12-78); ALBUMIN 3.9 G/DL (3.4-5.0); ALKALINE PHOSPHATASE 101 IU/L (46-116); ANION GAP 7 (8-16); ASPARTATE AMINO TRANSFERASE 28 U/L (10-37); BILIRUBIN,TOTAL 0.9 MG/DL (0.1-1.0); BLOOD UREA NITROGEN 19 MG/DL (7-18); CALCIUM 9.6 MG/DL (8.5-10.1); CHLORIDE 101 MMOL/L (99-107); CREATININE 0.76 MG/DL (0.40-0.90); GLUCOSE 188 MG/DL (70-104); POTASSIUM 4.6 MMOL/L (3.5-5.1); SODIUM 137 MMOL/L (135-145); TOTAL CARBON DIOXIDE 28.6 MMOL/L (24-32); TOTAL PROTEIN 7.7 G/DL (6.4-8.2); eGFR 72 ML/MIN
[2021-08-09] MEDS ORDERED: aminophylline 250mg/10ml inj. IV PRN (19:45)
[2021-08-09] MEDS ORDERED: regadenoson 0.4mg/5ml syringe IV ONE (19:45)
[2021-08-09] MEDS ORDERED: magnesium hydroxide 30ml (MOM) UD suspension PO PRN (19:45)
[2021-08-09] MEDS ORDERED: metoprolol tartrate 1mg/ml inj IV PRN (19:45)
[2021-08-09] MEDS ORDERED: mag hydrox/Alum hydrox/simeth 30ml oral suspension PO PRN (19:45)
[2021-08-09] MEDS ORDERED: potassium Cl 20 mEq SR tablet PO PRN ×2 (19:45)
[2021-08-09] MEDS ORDERED: ondansetron/PF 4mg/2ml inj IV PRN (19:45)
[2021-08-09] MEDS ORDERED: magnesium Cl slow-release 64mg tablet PO PRN (19:45)
[2021-08-09] MEDS ORDERED: potassium CL 10mEq/100ml bag 100 ML IV PRN (19:45)
[2021-08-09] MEDS ORDERED: nitroGLYCERIN 0.4mg SUBLingual tab SL PRN (19:45)
[2021-08-09] MEDS ORDERED: magnesium 4gm in 100ml NS 100 ML IV PRN (19:45)
[2021-08-09] MEDS ORDERED: acetaminophen 325mg tablet PO PRN ×2 (19:45)
[2021-08-09] MEDS ORDERED: magnesium 2GM in 50ml NS 50 ML IV PRN (19:45)
[2021-08-09] MEDS ORDERED: dextrose ORAL solution 15 GM/59 ML bottle PO PRN ×2 (19:50)
[2021-08-09] MEDS ORDERED: MESSAGE TO PHARMACY PO ONE (19:50)
[2021-08-09] MEDS ORDERED: dextrose 50%-water 50ml dispensing syringe IV PRN ×2 (19:50)
[2021-08-09] MEDS ORDERED: glucagon, human recombinant 1mg kit SUBCUT PRN (19:50)
[2021-08-09] MEDS ORDERED: furosemide 40mg/4ml inj IV SCH (20:00)
[2021-08-09] MEDS ORDERED: POTA10CA44 PO (20:05)
[2021-08-09] MEDS ORDERED: FURO-150 PO (20:05)
[2021-08-09] MEDS ORDERED: NITR0.4T48 SL (20:05)
[2021-08-09] MEDS ORDERED: polyvinyl alcohol ophthalmic drops 15ml bottle EACHEYE PRN (20:35)
[2021-08-09] MEDS ORDERED: temazepam 15mg capsule PO PRN (21:00)
[2021-08-09] MEDS: gabapentin 300mg capsule PO SCH (22:12)
[2021-08-09] MEDS: CefTRIAXone 2gm/D5W 50ml BAG 50 ML IV SCH (22:12)
--- NOTE | 2021-08-09 22:44 | NUR ---
MESSAGE: KAREN, BED 15 COVID +
[2021-08-09] MEDS: K and/or MAG REPLACEMENT MC SCH (23:10)
[2021-08-09] MEDS: insulin glargine (Lantus) pen - multi-dose SQ SCH (23:11)
[2021-08-09] MEDS: heparin, porcine 5000 units/ml vial SQ SCH (23:11)
--- NOTE | 2021-08-10 07:44 | NUR ---
Patient's daughter updated via telephone.
[2021-08-10 07:55] LABS: ALANINE AMINOTRANSFERASE 21 U/L (12-78); ALBUMIN 3.3 G/DL (3.4-5.0); ALBUMIN/GLOBULIN RATIO 0.9 (1.1-1.5); ALKALINE PHOSPHATASE 85 IU/L (46-116); ANION GAP 6 (8-16); ASPARTATE AMINO TRANSFERASE 25 U/L (10-37); BILIRUBIN,TOTAL 0.7 MG/DL (0.1-1.0); BLOOD UREA NITROGEN 21 MG/DL (7-18); BUN/CREATININE RATIO 30.9 (6.6-38.0); CALCIUM 8.4 MG/DL (8.5-10.1); CHLORIDE 101 MMOL/L (99-107); CHOL/HDL RATIO 1.7 (0.00-4.99); CHOLESTEROL 83 MG/DL (0-200); CREATININE 0.68 MG/DL (0.40-0.90); GLUCOSE 208 MG/DL (70-104); HDL CHOLESTEROL 48 MG/DL (35-60); LDL CHOLESTEROL 34 MG/DL (50-100); SODIUM 136 MMOL/L (135-145); TOTAL CARBON DIOXIDE 28.7 MMOL/L (24-32); TOTAL PROTEIN 6.8 G/DL (6.4-8.2); TRIGLYCERIDES 41 MG/DL (20-135); eGFR 82 ML/MIN
[2021-08-10 07:56] LABS: BASOPHILS % (AUTO) 0.5 % (0-1); EOSINOPHILS % (AUTO) 0.2 % (0-6); HEMATOCRIT 27.5 % (35.0-45.0); HEMOGLOBIN 8.8 g/dl (12.0-16.0); LYMPHOCYTES # (AUTO) 0.7 X10'3 (1.1-4.8); MEAN CORPUSCULAR HEMOGLOBIN 24.1 PG (27.0-31.0); MEAN CORPUSCULAR HGB CONC 32.1 g/dL (33.0-36.5); MEAN CORPUSCULAR VOLUME 74.9 FL (78-98); MEAN PLATELET VOLUME 7.6 FL (7.4-10.4); MONOCYTES # (AUTO) 1.8 X10'3 (0-0.9); MONOCYTES % (AUTO) 25.8 % (2-12); NEUTROPHILS # (AUTO) 4.5 X10'3 (1.8-7.7); NEUTROPHILS % (AUTO) 63.5 % (42-75); PLATELET COUNT 213 X10'3 (140-440); RED BLOOD COUNT 3.68 X10'6 (4.20-5.60); RED CELL DISTRIBUTION WIDTH 15.8 % (11.5-14.5); WHITE BLOOD COUNT 7.2 X10'3 (4.5-11.0)
[2021-08-10] MEDS: CefTRIAXone 2gm/D5W 50ml BAG 50 ML IV SCH (08:00)
[2021-08-10] MEDS: atorvastatin 10mg tablet PO SCH (08:00)
[2021-08-10] MEDS: furosemide 20 MG/2 ML vial IV SCH (08:00)
[2021-08-10] MEDS: metoprolol tartrate 50mg tablet PO SCH ×2 (08:00→22:50)
[2021-08-10] MEDS: losartan 50mg tablet PO SCH (08:00)
[2021-08-10] MEDS: isosorbide mononitrate 30mg tab.SR.24H PO SCH ×2 (08:00→22:49)
[2021-08-10] MEDS: heparin, porcine 5000 units/ml vial SQ SCH (08:00)
[2021-08-10] MEDS: K and/or MAG REPLACEMENT MC SCH ×2 (08:00→20:00)
[2021-08-10 09:13] LABS: TOTAL CELLS COUNTED 100
[2021-08-10 09:15] LABS: ELLIPTOCYTES 1+; HYPOCHROMASIA 1+; MICROCYTOSIS 1+; PLATELET ESTIMATE NORMAL; SCHISTOCYTES FEW; TEAR DROP CELLS FEW
[2021-08-10] MEDS ORDERED: nitroGLYCERIN 0.4mg SUBLingual tab SL PRN (16:00)
[2021-08-10] MEDS ORDERED: REMDESIVIR INJ 200 MG in normal saline 100ml IV soln 100 ML IV ONE (16:30)
[2021-08-10 17:00] LABS: APTT 27 SECONDS (22-32); D-DIMER 0.54 MG/L FEU (0-0.50)
[2021-08-10] MEDS: lactobacillus rhamnosus 10,000 MMU CELLS/CAPSULE PO SCH (22:48)
[2021-08-10] MEDS: potassium chloride 10mEq ER tablet PO SCH (22:48)
[2021-08-10] MEDS: gabapentin 300mg capsule PO SCH (22:49)
[2021-08-10] MEDS: apixaban 5mg tablet PO SCH (22:49)
[2021-08-10] MEDS: DEXAMETHASONE 6 MG TABLET PO SCH (22:49)
[2021-08-10] MEDS: insulin glargine (Lantus) pen - multi-dose SQ SCH (22:53)
[2021-08-11] MEDS: furosemide 20 MG/2 ML vial IV SCH ×3 (00:07→21:07)
[2021-08-11 02:15] VITALS: BP 148/71
[2021-08-11 06:00] VITALS: BP 131/76
--- NOTE | 2021-08-11 06:35 | NUR ---
Change of shift report given to Jesenia OWENS Addendum: 08/11/21 at 0636 by Nargis Ascencio RN Amended: Links added.
--- NOTE | 2021-08-11 06:51 | NUR ---
Patient in room ORTHO 4018. I have received report from GRACIELA Barillas and had the opportunity to ask questions and assume patient care.
[2021-08-11 07:09] LABS: BASOPHILS % (AUTO) 0.5 % (0-1); EOSINOPHILS % (AUTO) 0 % (0-6); HEMATOCRIT 27.8 % (35.0-45.0); LYMPHOCYTES # (AUTO) 0.6 X10'3 (1.1-4.8); LYMPHOCYTES % (AUTO) 12.8 % (21-51); MEAN CORPUSCULAR HGB CONC 32.3 g/dL (33.0-36.5); MEAN CORPUSCULAR VOLUME 74.2 FL (78-98); MONOCYTES # (AUTO) 0.4 X10'3 (0-0.9); MONOCYTES % (AUTO) 7.9 % (2-12); NEUTROPHILS % (AUTO) 78.8 % (42-75); PLATELET COUNT 211 X10'3 (140-440); RED BLOOD COUNT 3.75 X10'6 (4.20-5.60); RED CELL DISTRIBUTION WIDTH 16.2 % (11.5-14.5); WHITE BLOOD COUNT 5.1 X10'3 (4.5-11.0)
[2021-08-11 07:28] LABS: D-DIMER 0.51 MG/L FEU (0-0.50)
--- NOTE | 2021-08-11 07:30 | NUR ---
Age screen: Pt admitted w/ COVID-19 pneumonitis and acute respiratory failure with hypoxemia, on 4L NC per EMR. Noted w/ hx of DM, last A1C 7.8 06/16/21, fair control and appropriate for age per ADA guidelines, DM ed not warranted at this time.Currently on Heart Healthy diet pending PO intake, recommend liberalize to regular diet given geriatric age. Pending physical assessment at this time. Will continue to monitor. Addendum: 08/11/21 at [address] Amended: Links added.
[2021-08-11 07:35] LABS: ALANINE AMINOTRANSFERASE 25 U/L (12-78); ALBUMIN 3.3 G/DL (3.4-5.0); ALKALINE PHOSPHATASE 84 IU/L (46-116); ANION GAP 6 (8-16); ASPARTATE AMINO TRANSFERASE 30 U/L (10-37); BILIRUBIN,TOTAL 0.6 MG/DL (0.1-1.0); BLOOD UREA NITROGEN 22 MG/DL (7-18); C-REACTIVE PROTEIN 0.69 MG/DL (0.0-0.5); CALCIUM 8.2 MG/DL (8.5-10.1); CHLORIDE 97 MMOL/L (99-107); CREATININE 0.71 MG/DL (0.40-0.90); GLUCOSE 287 MG/DL (70-104); POTASSIUM 4.4 MMOL/L (3.5-5.1); SODIUM 131 MMOL/L (135-145); TOTAL CARBON DIOXIDE 28.2 MMOL/L (24-32); TOTAL PROTEIN 6.7 G/DL (6.4-8.2); eGFR 78 ML/MIN
[2021-08-11] MEDS: K and/or MAG REPLACEMENT MC SCH ×2 (08:00→20:00)
[2021-08-11] MEDS ORDERED: furosemide 20MG tablet PO SCH (08:00)
[2021-08-11] MEDS: isosorbide mononitrate 30mg tab.SR.24H PO SCH ×2 (09:14→21:07)
[2021-08-11] MEDS: lactobacillus rhamnosus 10,000 MMU CELLS/CAPSULE PO SCH ×2 (09:15→21:06)
[2021-08-11] MEDS: cholecalciferol (vitamin D3) 1,000 unit (25mcg) tablet PO SCH (09:15)
[2021-08-11] MEDS: DEXAMETHASONE 6 MG TABLET PO SCH ×2 (09:15→21:07)
[2021-08-11] MEDS: apixaban 5mg tablet PO SCH ×2 (09:15→21:07)
[2021-08-11] MEDS: potassium chloride 10mEq ER tablet PO SCH ×2 (09:15→21:07)
[2021-08-11] MEDS: atorvastatin 10mg tablet PO SCH (09:15)
[2021-08-11] MEDS: metoprolol tartrate 50mg tablet PO SCH ×2 (09:16→21:07)
[2021-08-11] MEDS: losartan 50mg tablet PO SCH (09:16)
[2021-08-11] MEDS: insulin Lispro (HumaLOG) vial - multi-dose SQ SCH ×3 (09:30→18:29)
[2021-08-11 18:00] VITALS: BP 121/51
--- NOTE | 2021-08-11 18:23 | NUR ---
Problems reprioritized. Patient report given, questions answered & plan of care reviewed with GRACIELA Marie.
[2021-08-11] MEDS: insulin glargine (Lantus) pen - multi-dose SQ SCH (21:06)
[2021-08-11] MEDS: gabapentin 300mg capsule PO SCH (21:07)
[2021-08-11 22:00] VITALS: BP 133/55
[2021-08-12 02:00] VITALS: BP 122/63
[2021-08-12 06:00] VITALS: BP 146/70
--- NOTE | 2021-08-12 06:39 | NUR ---
Patient in room ORTHO 4018. I have received report from GRACIELA PRICE and had the opportunity to ask questions and assume patient care.
[2021-08-12 06:42] LABS: BASOPHILS % (AUTO) 0.1 % (0-1); EOSINOPHILS % (AUTO) 0 % (0-6); HEMATOCRIT 27.8 % (35.0-45.0); HEMOGLOBIN 8.9 g/dl (12.0-16.0); LYMPHOCYTES # (AUTO) 0.7 X10'3 (1.1-4.8); LYMPHOCYTES % (AUTO) 16.8 % (21-51); MEAN CORPUSCULAR HEMOGLOBIN 23.7 PG (27.0-31.0); MEAN CORPUSCULAR VOLUME 74.3 FL (78-98); MEAN PLATELET VOLUME 8.2 FL (7.4-10.4); MONOCYTES # (AUTO) 0.6 X10'3 (0-0.9); MONOCYTES % (AUTO) 14.3 % (2-12); NEUTROPHILS % (AUTO) 68.8 % (42-75); PLATELET COUNT 224 X10'3 (140-440); RED BLOOD COUNT 3.74 X10'6 (4.20-5.60); WHITE BLOOD COUNT 4.4 X10'3 (4.5-11.0)
[2021-08-12 06:53] LABS: D-DIMER 0.48 MG/L FEU (0-0.50)
[2021-08-12 07:07] LABS: ALANINE AMINOTRANSFERASE 22 U/L (12-78); ALBUMIN 2.9 G/DL (3.4-5.0); ALBUMIN/GLOBULIN RATIO 0.9 (1.1-1.5); ALKALINE PHOSPHATASE 73 IU/L (46-116); ANION GAP 4 (8-16); ASPARTATE AMINO TRANSFERASE 31 U/L (10-37); BILIRUBIN,TOTAL 0.5 MG/DL (0.1-1.0); BLOOD UREA NITROGEN 32 MG/DL (7-18); BUN/CREATININE RATIO 43.8 (6.6-38.0); C-REACTIVE PROTEIN 0.32 MG/DL (0.0-0.5); CHLORIDE 107 MMOL/L (99-107); CREATININE 0.73 MG/DL (0.40-0.90); GLUCOSE 144 MG/DL (70-104); POTASSIUM 4.3 MMOL/L (3.5-5.1); SODIUM 141 MMOL/L (135-145); TOTAL CARBON DIOXIDE 30.1 MMOL/L (24-32); TOTAL PROTEIN 6.3 G/DL (6.4-8.2); eGFR 75 ML/MIN
[2021-08-12] MEDS: furosemide 20 MG/2 ML vial IV SCH ×2 (07:30→22:00)
[2021-08-12] MEDS: atorvastatin 10mg tablet PO SCH (07:35)
[2021-08-12] MEDS: lactobacillus rhamnosus 10,000 MMU CELLS/CAPSULE PO SCH ×2 (07:36→21:59)
[2021-08-12] MEDS: apixaban 5mg tablet PO SCH ×2 (07:36→21:59)
[2021-08-12] MEDS: isosorbide mononitrate 30mg tab.SR.24H PO SCH ×2 (07:36→22:04)
[2021-08-12] MEDS: DEXAMETHASONE 6 MG TABLET PO SCH ×2 (07:37→21:59)
[2021-08-12] MEDS: potassium chloride 10mEq ER tablet PO SCH ×2 (07:37→21:59)
[2021-08-12] MEDS: metoprolol tartrate 50mg tablet PO SCH (07:38)
[2021-08-12] MEDS: K and/or MAG REPLACEMENT MC SCH ×2 (07:40→20:00)
[2021-08-12] MEDS: cholecalciferol (vitamin D3) 1,000 unit (25mcg) tablet PO SCH (07:40)
[2021-08-12] MEDS: losartan 50mg tablet PO SCH (07:40)
[2021-08-12] MEDS: insulin Lispro (HumaLOG) vial - multi-dose SQ SCH ×3 (09:21→18:47)
[2021-08-12 10:00] VITALS: BP 132/66
[2021-08-12] MEDS: REMDESIVIR INJ 100 MG in normal saline 100ml IV soln 100 ML IV SCH (16:48)
[2021-08-12 18:00] VITALS: BP 126/50
[2021-08-12 18:20] VITALS: BP 126/50
--- NOTE | 2021-08-12 18:24 | NUR ---
Problems reprioritized. Patient report given, questions answered & plan of care reviewed with GRACIELA PRICE.
[2021-08-12] MEDS: gabapentin 300mg capsule PO SCH (21:59)
[2021-08-12] MEDS: insulin glargine (Lantus) pen - multi-dose SQ SCH (21:59)
[2021-08-12 22:00] VITALS: BP 116/65
[2021-08-12] MEDS: metoprolol tartrate 25mg tablet PO SCH (22:00)
[2021-08-13 02:00] VITALS: BP 140/51
[2021-08-13 07:38] VITALS: BP 116/56
[2021-08-13] MEDS: K and/or MAG REPLACEMENT MC SCH ×2 (08:00→20:00)
[2021-08-13 08:53] LABS: BASOPHILS % (AUTO) 0.1 % (0-1); EOSINOPHILS % (AUTO) 0 % (0-6); HEMATOCRIT 30.2 % (35.0-45.0); HEMOGLOBIN 9.5 g/dl (12.0-16.0); LYMPHOCYTES # (AUTO) 0.9 X10'3 (1.1-4.8); LYMPHOCYTES % (AUTO) 14.3 % (21-51); MEAN CORPUSCULAR HEMOGLOBIN 23.4 PG (27.0-31.0); MEAN CORPUSCULAR HGB CONC 31.4 g/dL (33.0-36.5); MEAN CORPUSCULAR VOLUME 74.7 FL (78-98); MONOCYTES # (AUTO) 0.9 X10'3 (0-0.9); MONOCYTES % (AUTO) 14.3 % (2-12); NEUTROPHILS # (AUTO) 4.7 X10'3 (1.8-7.7); NEUTROPHILS % (AUTO) 71.3 % (42-75); PLATELET COUNT 255 X10'3 (140-440); RED BLOOD COUNT 4.05 X10'6 (4.20-5.60); RED CELL DISTRIBUTION WIDTH 15.7 % (11.5-14.5); WHITE BLOOD COUNT 6.6 X10'3 (4.5-11.0)
[2021-08-13 09:20] LABS: ALANINE AMINOTRANSFERASE 31 U/L (12-78); ALBUMIN 3.3 G/DL (3.4-5.0); ALBUMIN/GLOBULIN RATIO 1.1 (1.1-1.5); ALKALINE PHOSPHATASE 84 IU/L (46-116); ANION GAP 8 (8-16); ASPARTATE AMINO TRANSFERASE 33 U/L (10-37); BILIRUBIN,TOTAL 0.6 MG/DL (0.1-1.0); BLOOD UREA NITROGEN 31 MG/DL (7-18); C-REACTIVE PROTEIN 0.15 MG/DL (0.0-0.5); CALCIUM 8.6 MG/DL (8.5-10.1); CHLORIDE 105 MMOL/L (99-107); CREATININE 0.62 MG/DL (0.40-0.90); GLUCOSE 80 MG/DL (70-104); POTASSIUM 4.3 MMOL/L (3.5-5.1); SODIUM 142 MMOL/L (135-145); TOTAL PROTEIN 6.3 G/DL (6.4-8.2); eGFR > 90 ML/MIN
[2021-08-13] MEDS: furosemide 20 MG/2 ML vial IV SCH ×2 (09:41→20:51)
[2021-08-13] MEDS: metoprolol tartrate 50mg tablet PO SCH (09:41)
[2021-08-13] MEDS: DEXAMETHASONE 6 MG TABLET PO SCH ×2 (09:42→20:51)
[2021-08-13] MEDS: apixaban 5mg tablet PO SCH ×2 (09:42→20:51)
[2021-08-13] MEDS: cholecalciferol (vitamin D3) 1,000 unit (25mcg) tablet PO SCH (09:42)
[2021-08-13] MEDS: lactobacillus rhamnosus 10,000 MMU CELLS/CAPSULE PO SCH ×2 (09:42→20:51)
[2021-08-13] MEDS: isosorbide mononitrate 30mg tab.SR.24H PO SCH ×2 (09:42→20:51)
[2021-08-13] MEDS: losartan 50mg tablet PO SCH (09:42)
[2021-08-13] MEDS: atorvastatin 10mg tablet PO SCH (09:42)
[2021-08-13] MEDS: potassium chloride 10mEq ER tablet PO SCH ×2 (09:42→20:51)
[2021-08-13 09:45] LABS: D-DIMER 0.68 MG/L FEU (0-0.50)
--- NOTE | 2021-08-13 09:52 | NUR ---
Initial: Pt presented with c/o CP and SOB, found to be positive for COVID. Pt on a heart healthy CHO controlled diet and eating well with average 81% PO intake since admit meeting estimated nutrient needs. Recommend discontinuing heart healthy diet in view of geriatric age and lipid panel WNL with the exception of low LDL, left message with GRACIELA. MYNOR 08/12. Skin intact per EMR. No nutrition intervention implemented at this time. Will continue to follow. Recommendations: 1) Continue CHO controlled diet; discontinue heart healthy diet in view of geriatric age and lipid panel WNL/low; liberalize to regular diet if BG levels well controlled 2) Monitor need for additional protein 3) Bowel care PRN 4) Scaled weight this admit; weekly scaled weights thereafter Addendum: 08/13/21 at [address] Amended: Links added.
[2021-08-13 10:10] VITALS: BP 136/58
[2021-08-13] MEDS ORDERED: DEXA6TAB6 PO (10:49)
[2021-08-13] MEDS ORDERED: FURO-150 PO (10:50)
--- NOTE | 2021-08-13 16:02 | NUR ---
Discharged orders by Dr. Gaytan. Message sent to Dr. Gaytan and case management pt is unsafe to go home. Unable to ambulate to toilet and back on her own. Has 4 steps to get into the house pt is too weak to go up them. Pt will have family who can help her tomorrow.
[2021-08-13] MEDS: REMDESIVIR INJ 100 MG in normal saline 100ml IV soln 100 ML IV SCH (16:11)
[2021-08-13 18:00] VITALS: BP 155/59
[2021-08-13] MEDS: insulin Lispro (HumaLOG) vial - multi-dose SQ SCH ×2 (18:46→20:51)
[2021-08-13] MEDS: insulin glargine (Lantus) pen - multi-dose SQ SCH (20:49)
[2021-08-13] MEDS: metoprolol tartrate 25mg tablet PO SCH (20:51)
[2021-08-13] MEDS: gabapentin 300mg capsule PO SCH (20:52)
[2021-08-13 22:00] VITALS: BP 121/40
[2021-08-14 02:00] VITALS: BP 153/65
[2021-08-14 06:06] VITALS: BP 146/47
[2021-08-14 07:57] LABS: BASOPHILS % (AUTO) 0.1 % (0-1); EOSINOPHILS % (AUTO) 0 % (0-6); HEMATOCRIT 29.1 % (35.0-45.0); HEMOGLOBIN 9.4 g/dl (12.0-16.0); LYMPHOCYTES # (AUTO) 0.9 X10'3 (1.1-4.8); LYMPHOCYTES % (AUTO) 15.3 % (21-51); MEAN CORPUSCULAR HEMOGLOBIN 23.6 PG (27.0-31.0); MEAN CORPUSCULAR HGB CONC 32.2 g/dL (33.0-36.5); MEAN CORPUSCULAR VOLUME 73.4 FL (78-98); MEAN PLATELET VOLUME 7.7 FL (7.4-10.4); MONOCYTES # (AUTO) 0.9 X10'3 (0-0.9); MONOCYTES % (AUTO) 15.5 % (2-12); NEUTROPHILS % (AUTO) 69.1 % (42-75); PLATELET COUNT 268 X10'3 (140-440); RED BLOOD COUNT 3.97 X10'6 (4.20-5.60); RED CELL DISTRIBUTION WIDTH 15.7 % (11.5-14.5); WHITE BLOOD COUNT 5.8 X10'3 (4.5-11.0)
[2021-08-14] MEDS: K and/or MAG REPLACEMENT MC SCH (08:00)
[2021-08-14 08:16] LABS: ACANTHOCYTES FEW; ELLIPTOCYTES FEW; MICROCYTOSIS 1+; PLATELET ESTIMATE NORMAL
[2021-08-14 08:17] LABS: HYPOCHROMASIA 1+
[2021-08-14 08:23] LABS: ALANINE AMINOTRANSFERASE 30 U/L (12-78); ALBUMIN 2.9 G/DL (3.4-5.0); ALBUMIN/GLOBULIN RATIO 0.9 (1.1-1.5); ALKALINE PHOSPHATASE 72 IU/L (46-116); ANION GAP 4 (8-16); ASPARTATE AMINO TRANSFERASE 31 U/L (10-37); BILIRUBIN,TOTAL 0.6 MG/DL (0.1-1.0); BLOOD UREA NITROGEN 26 MG/DL (7-18); BUN/CREATININE RATIO 49.1 (6.6-38.0); C-REACTIVE PROTEIN 0.06 MG/DL (0.0-0.5); CALCIUM 8.1 MG/DL (8.5-10.1); CHLORIDE 107 MMOL/L (99-107); CREATININE 0.53 MG/DL (0.40-0.90); POTASSIUM 4.4 MMOL/L (3.5-5.1); SODIUM 143 MMOL/L (135-145); TOTAL CARBON DIOXIDE 32.4 MMOL/L (24-32); eGFR > 90 ML/MIN
[2021-08-14 08:25] LABS: GLUCOSE 74 MG/DL (70-104)
[2021-08-14] MEDS: insulin Lispro (HumaLOG) vial - multi-dose SQ SCH (08:47)
[2021-08-14] MEDS: losartan 50mg tablet PO SCH (08:51)
[2021-08-14] MEDS: furosemide 20 MG/2 ML vial IV SCH (08:51)
[2021-08-14 08:52] VITALS: BP_SYST 146
[2021-08-14] MEDS: cholecalciferol (vitamin D3) 1,000 unit (25mcg) tablet PO SCH (08:52)
[2021-08-14] MEDS: lactobacillus rhamnosus 10,000 MMU CELLS/CAPSULE PO SCH (08:52)
[2021-08-14] MEDS: potassium chloride 10mEq ER tablet PO SCH (08:52)
[2021-08-14] MEDS: DEXAMETHASONE 6 MG TABLET PO SCH (08:52)
[2021-08-14] MEDS: metoprolol tartrate 50mg tablet PO SCH (08:52)
[2021-08-14] MEDS: atorvastatin 10mg tablet PO SCH (08:52)
[2021-08-14] MEDS: isosorbide mononitrate 30mg tab.SR.24H PO SCH (08:52)
[2021-08-14] MEDS: apixaban 5mg tablet PO SCH (08:52)
[2021-08-14 09:04] LABS: D-DIMER 0.74 MG/L FEU (0-0.50)
--- NOTE | 2021-08-14 13:56 | NUR ---
Pt discharged in stable condition with belongings on RA after working with PT and practicing stairs. Pt needed assistance. Daughter pecan picker pt.
== END 2021-08-14 12:15 | disposition home health service (06) | DRG 177 ==
LOC: ER 10:59 → UNDOADMIN 19:48 → ED HOLD 19:48 → ORTHO 4S 08-11 02:15
PROVIDERS: ADMIT Internal Medicine; ATTEND Family Medicine
PROC: XW033E5 Introduction of Remdesivir Anti-infective into Peripheral Vein, Percutaneous Approach, New Technology Group 5 (ICD-10-PCS; principal; 2021-08-10)
DX: U07.1 COVID-19 (principal); J12.82 Pneumonia due to coronavirus disease 2019; J96.01 Acute respiratory failure with hypoxia; I50.42 Chronic combined systolic (congestive) and diastolic (congestive) heart failure; J98.11 Atelectasis; I48.91 Unspecified atrial fibrillation; I11.0 Hypertensive heart disease with heart failure; D64.9 Anemia, unspecified; Z60.2 Problems related to living alone; E11.9 Type 2 diabetes mellitus without complications; E78.00 Pure hypercholesterolemia, unspecified; G89.29 Other chronic pain; M54.9 Dorsalgia, unspecified; I25.10 Atherosclerotic heart disease of native coronary artery without angina pectoris; Z78.9 Other specified health status; Z79.01 Long term (current) use of anticoagulants; Z79.84 Long term (current) use of oral hypoglycemic drugs; Z79.899 Other long term (current) drug therapy; Z88.2 Allergy status to sulfonamides; Z88.5 Allergy status to narcotic agent; Z88.8 Allergy status to other drugs, medicaments and biological substances
CPT/HCPCS: 36415; 71045; 80053; 80061; 82948; 83605; 83880; 84145; 84484; 85007; 85008; 85025; 85379; 85610; 85730; 86140; 87040; 87635; 93005; 97116; 97161; 97530; 99285; G0378; J0696; J1644; J1815; J1940; J3490; J8540

== ENCOUNTER 2021-10-22 18:58 | Inpatient (IN) | payer BC ==
[~2021-10-22] VITALS: Ht 162.6 cm; Wt 85.4 kg
[~2021-10-22 18:58] MED LIST changes: -AMOX500C2 PO; +DEXA6TAB6 PO; +FURO-150 PO; -FURO20TA4 PO; +NITR0.4T48 SL; +POTA10CA44 PO
[2021-10-22 20:39] LABS: BASOPHILS # (AUTO) 0.1 X10'3 (0-0.2); BASOPHILS % (AUTO) 0.8 % (0-1); EOSINOPHILS % (AUTO) 0.6 % (0-6); HEMATOCRIT 25.5 % (35.0-45.0); HEMOGLOBIN 7.8 g/dl (12.0-16.0); LYMPHOCYTES # (AUTO) 1.3 X10'3 (1.1-4.8); MEAN CORPUSCULAR HEMOGLOBIN 20.6 PG (27.0-31.0); MEAN CORPUSCULAR HGB CONC 30.6 g/dL (33.0-36.5); MEAN CORPUSCULAR VOLUME 67.2 FL (78-98); MEAN PLATELET VOLUME 7.7 FL (7.4-10.4); MONOCYTES # (AUTO) 1.7 X10'3 (0-0.9); MONOCYTES % (AUTO) 20.3 % (2-12); NEUTROPHILS # (AUTO) 5.1 X10'3 (1.8-7.7); NEUTROPHILS % (AUTO) 62.3 % (42-75); PLATELET COUNT 259 X10'3 (140-440); RED CELL DISTRIBUTION WIDTH 17.6 % (11.5-14.5); WHITE BLOOD COUNT 8.2 X10'3 (4.5-11.0)
[2021-10-22 20:46] LABS: APTT 28 SECONDS (22-32)
[2021-10-22 20:49] LABS: ALANINE AMINOTRANSFERASE 18 U/L (12-78); ALBUMIN 3.3 G/DL (3.4-5.0); ALBUMIN/GLOBULIN RATIO 0.9 (1.1-1.5); ALKALINE PHOSPHATASE 94 IU/L (46-116); ANION GAP 8 (8-16); ASPARTATE AMINO TRANSFERASE 25 U/L (10-37); BILIRUBIN,TOTAL 0.6 MG/DL (0.1-1.0); BLOOD UREA NITROGEN 27 MG/DL (7-18); BUN/CREATININE RATIO 34.6 (6.6-38.0); CALCIUM 9.1 MG/DL (8.5-10.1); CHLORIDE 102 MMOL/L (99-107); CREATININE 0.78 MG/DL (0.40-0.90); GLUCOSE 196 MG/DL (70-104); POTASSIUM 4.5 MMOL/L (3.5-5.1); SODIUM 136 MMOL/L (135-145); TOTAL CARBON DIOXIDE 26.2 MMOL/L (24-32); TOTAL PROTEIN 6.9 G/DL (6.4-8.2); eGFR 70 ML/MIN
[2021-10-22 21:49] LABS: ANISOCYTOSIS 1+; MICROCYTOSIS 1+; PLATELET ESTIMATE NORMAL; TOTAL CELLS COUNTED 100
[2021-10-22 21:50] LABS: ELLIPTOCYTES FEW; HYPOCHROMASIA 1+; POLYCHROMASIA FEW
[2021-10-22] MEDS ORDERED: ipratropium/albuterol 3ml nebule NEB ONE (22:15)
[2021-10-22] MEDS ORDERED: doxycycline inj 100 MG in normal saline 100ml IV soln 100 ML IV ONE (22:15)
[2021-10-22] MEDS ORDERED: CefTRIAXone 2gm/NS 100ml IVPB 100 ML IV ONE (22:15)
[2021-10-22] MEDS ORDERED: dexamethasone sod phosphate 10mg/ml inj IV STA (22:42)
[2021-10-22] MEDS ORDERED: FURO20TA4 PO (22:53)
[2021-10-23] VITALS (9 sets, daily range): BP systolic 98–150; BP diastolic 50–66
[2021-10-23] MEDS ORDERED: acetaminophen 325mg tablet PO PRN (01:35)
[2021-10-23] MEDS ORDERED: mag hydrox/Alum hydrox/simeth 30ml oral suspension PO PRN (01:35)
[2021-10-23] MEDS ORDERED: acetaminophen 650mg rectal suppository RC PRN (01:35)
[2021-10-23] MEDS ORDERED: ondansetron 4mg rapidly disintigrating tab PO PRN (01:35)
[2021-10-23] MEDS ORDERED: diphenhydrAMINE 50 mg/ml inj IV PRN (01:35)
[2021-10-23] MEDS ORDERED: ondansetron/PF 4mg/2ml inj IV PRN (01:35)
[2021-10-23] MEDS ORDERED: bisacodyl 10mg suppository rectal RC PRN (01:35)
[2021-10-23] MEDS ORDERED: diphenhydrAMINE 25mg capsule PO PRN (01:35)
[2021-10-23] MEDS ORDERED: magnesium hydroxide 30ml (MOM) UD suspension PO PRN (01:35)
[2021-10-23] MEDS ORDERED: MESSAGE TO PHARMACY PO ONE (01:45)
[2021-10-23] MEDS ORDERED: dextrose 50%-water 50ml dispensing syringe IV PRN ×2 (01:45)
[2021-10-23] MEDS ORDERED: glucagon, human recombinant 1mg kit SUBCUT PRN (01:45)
[2021-10-23] MEDS ORDERED: DEXTROSE 15 GM of carb/4 tabs (each vial/BOTTLE has 4 tablets) PO PRN ×2 (01:45)
[2021-10-23 02:09] LABS: MAGNESIUM 1.8 MG/DL (1.5-2.4); PHOSPHORUS 3.8 MG/DL (2.3-4.5)
[2021-10-23 02:12] LABS: HEMOGLOBIN A1C 8.7 % (4.5-6.2)
[2021-10-23] MEDS: ipratropium/albuterol 3ml nebule NEB SCH ×3 (03:00→23:08)
--- NOTE | 2021-10-23 07:03 | NUR ---
Report given to GRACIELA Farooq on the Surg floor.
--- NOTE | 2021-10-23 07:03 | NUR ---
Patient in room ED 11. I have received report from elena miller and had the opportunity to ask questions and assume patient care.
[2021-10-23] MEDS ORDERED: doxycycline inj 100 MG in normal saline 100ml IV soln 100 ML IV SCH (08:00)
[2021-10-23] MEDS ORDERED: apixaban 5mg tablet PO SCH (08:00)
[2021-10-23] MEDS: isosorbide mononitrate 30mg tab.SR.24H PO SCH ×2 (08:47→19:55)
[2021-10-23] MEDS: metoprolol tartrate 50mg tablet PO SCH ×2 (08:48→19:56)
[2021-10-23] MEDS: docusate sod 100mg capsule PO SCH ×2 (08:49→19:56)
[2021-10-23] MEDS: atorvastatin 10mg tablet PO SCH (08:49)
[2021-10-23] MEDS: cefTRIAXone 1g/NS 100ml IVPB 100 ML IV SCH (08:50)
[2021-10-23] MEDS: pantoprazole 40mg Tablet.DR PO SCH (08:50)
[2021-10-23] MEDS: furosemide 40mg/4ml inj IV SCH (09:02)
[2021-10-23] MEDS: azithromycin 250mg tablet PO SCH (09:52)
[2021-10-23] MEDS: insulin Lispro (HumaLOG) vial - multi-dose SQ SCH ×4 (09:58→22:03)
[2021-10-23 11:34] LABS: HEMOGLOBIN 7.9 g/dl (12.0-16.0); MEAN CORPUSCULAR HEMOGLOBIN 20.5 PG (27.0-31.0); MEAN CORPUSCULAR HGB CONC 30.2 g/dL (33.0-36.5); MEAN CORPUSCULAR VOLUME 67.9 FL (78-98); MEAN PLATELET VOLUME 7.9 FL (7.4-10.4); PLATELET COUNT 222 X10'3 (140-440); RED BLOOD COUNT 3.83 X10'6 (4.20-5.60); RED CELL DISTRIBUTION WIDTH 17.6 % (11.5-14.5); WHITE BLOOD COUNT 5.1 X10'3 (4.5-11.0)
[2021-10-23] MEDS: acetaminophen 325mg tablet PO PRN ×2 (11:59→23:32)
[2021-10-23 12:08] LABS: % IRON SATURATION 3 % (11-46); IRON 16 UG/DL (49-151); TOTAL IRON BINDING CAPACITY 466 UG/DL (259-388)
--- NOTE | 2021-10-23 13:33 | NUR ---
WOUND INFECTION EDUCATION PROVIDED BY WOUND CARE 1. Patient instructed to call their primary doctor, or go the ED immediately if any of the following symptoms occur: * Increased pain in wound * Increase in drainage from the wound * Redness in the skin surrounding the wound * Warmth in the skin surrounding the wound * Bleeding from the wound * Temperature of 101 or greater 2. If any of these occur while in the hospital tell a nurse immediately. PRESSURE ULCER EDUCATION: DEFINITION: A pressure ulcer is an area of skin that breaks down when you stay in one position too long. The constant pressure against the skin reduces the blood flow to that area and the affected tissue dies. CAUSES: "Being bedridden or in a wheelchair "Fragile skin "Having a chronic condition, such as diabetes or vascular disease "Inability to move certain parts of your body without assistance "Older age "Incontinence of urine or stool SYMPTOMS: "A reddened area that DOES NOT turn white when pressed on - this can be the beginning of a pressure ulcer "A blister, deep sore or a crater - these can be advanced pressure ulcers FIRST AID: "Relieve the pressure on this area "Keep the area clean and dry "Call your primary doctor if you see any of the above symptoms "DO NOT massage the area "DO NOT use a donut shaped or ring shaped pillow- these actually interfere with the blood flow and cause complications PREVENTION: "Check for pressure ulcers everyday "Change position at least every two hours to relieve pressure "Use items that help relieve pressure- pillows, sheepskin, foam padding, and powders. "Keep skin clean and dry "Eat healthy well balanced meals "Exercise daily IF YOU SEE ANY OF THESE SYMPTOMS WHILE IN THE HOSPITAL - TELL YOUR NURSE IMMEDIATELY. IF YOU SEE ANY OF THESE SYMPTOMS WHILE AT HOME OR HAVE ANY QUESTIONS OR CONCERNS ABOUT PRESSURE ULCERS - CALL YOUR PRIMARY DOCTOR IMMEDIATELY. Addendum: 10/23/21 at 1333 by Ana Christopher RN Amended: Links added.
[2021-10-23 15:30] LABS: HEMATOCRIT 23.2 % (35.0-45.0); MEAN CORPUSCULAR HEMOGLOBIN 19.9 PG (27.0-31.0); MEAN CORPUSCULAR HGB CONC 29.9 g/dL (33.0-36.5); MEAN CORPUSCULAR VOLUME 66.6 FL (78-98); MEAN PLATELET VOLUME 7.6 FL (7.4-10.4); PLATELET COUNT 235 X10'3 (140-440); RED BLOOD COUNT 3.48 X10'6 (4.20-5.60); RED CELL DISTRIBUTION WIDTH 17.9 % (11.5-14.5); WHITE BLOOD COUNT 4.5 X10'3 (4.5-11.0)
[2021-10-23 15:42] LABS: HEMOGLOBIN 6.9 g/dl (12.0-16.0)
[2021-10-23 18:19] LABS: OCCULT BLOOD STOOL NEGATIVE (Neg)
--- NOTE | 2021-10-23 18:31 | NUR ---
Problems reprioritized. Patient report given, questions answered & plan of care reviewed with PRUDENCE RN.
--- NOTE | 2021-10-23 18:49 | NUR ---
Patient in room JUAN M 351. I have received report from PRINCESS OWENS and had the opportunity to ask questions and assume patient care.
[2021-10-23] MEDS: PEG 400/HYPROMELLOSE/GLYCERIN 15ml bottle EACHEYE PRN (19:55)
[2021-10-23] MEDS ORDERED: temazepam 15mg capsule PO PRN (21:00)
[2021-10-23] MEDS: insulin glargine (Lantus) pen - multi-dose SQ SCH (22:01)
[2021-10-23] MEDS: gabapentin 100mg capsule PO SCH (22:06)
[2021-10-24] VITALS: BP 137/81
[2021-10-24 00:52] LABS: BASOPHILS % (AUTO) 0.3 % (0-1); EOSINOPHILS % (AUTO) 0.1 % (0-6); HEMATOCRIT 25.4 % (35.0-45.0); HEMOGLOBIN 7.9 g/dl (12.0-16.0); LYMPHOCYTES # (AUTO) 1.1 X10'3 (1.1-4.8); LYMPHOCYTES % (AUTO) 15.8 % (21-51); MEAN CORPUSCULAR HEMOGLOBIN 21.3 PG (27.0-31.0); MEAN CORPUSCULAR VOLUME 68.8 FL (78-98); MEAN PLATELET VOLUME 7.7 FL (7.4-10.4); MONOCYTES # (AUTO) 1.8 X10'3 (0-0.9); MONOCYTES % (AUTO) 26.5 % (2-12); NEUTROPHILS # (AUTO) 3.8 X10'3 (1.8-7.7); NEUTROPHILS % (AUTO) 57.3 % (42-75); PLATELET COUNT 232 X10'3 (140-440); RED CELL DISTRIBUTION WIDTH 18.8 % (11.5-14.5); WHITE BLOOD COUNT 6.7 X10'3 (4.5-11.0)
[2021-10-24 01:07] LABS: ALANINE AMINOTRANSFERASE 17 U/L (12-78); ALBUMIN 2.8 G/DL (3.4-5.0); ALBUMIN/GLOBULIN RATIO 0.8 (1.1-1.5); ALKALINE PHOSPHATASE 78 IU/L (46-116); ANION GAP 10 (8-16); ASPARTATE AMINO TRANSFERASE 26 U/L (10-37); BILIRUBIN,TOTAL 0.7 MG/DL (0.1-1.0); BLOOD UREA NITROGEN 31 MG/DL (7-18); BUN/CREATININE RATIO 30.7 (6.6-38.0); CALCIUM 8.3 MG/DL (8.5-10.1); CHLORIDE 104 MMOL/L (99-107); CREATININE 1.01 MG/DL (0.40-0.90); GLUCOSE 203 MG/DL (70-104); MAGNESIUM 1.8 MG/DL (1.5-2.4); PHOSPHORUS 3.9 MG/DL (2.3-4.5); POTASSIUM 4.1 MMOL/L (3.5-5.1); SODIUM 141 MMOL/L (135-145); TOTAL PROTEIN 6.2 G/DL (6.4-8.2); eGFR 52 ML/MIN
[2021-10-24 02:20] LABS: ANISOCYTOSIS 2+; MICROCYTOSIS 2+; PLATELET ESTIMATE NORMAL
[2021-10-24 02:21] LABS: BURR CELLS FEW; ELLIPTOCYTES FEW; POLYCHROMASIA FEW
[2021-10-24] MEDS: ipratropium/albuterol 3ml nebule NEB SCH ×6 (02:50→23:15)
[2021-10-24 04:00] VITALS: BP 107/61
--- NOTE | 2021-10-24 06:26 | NUR ---
Problems reprioritized. Patient report given, questions answered & plan of care reviewed with VIVIENNE OWENS.
[2021-10-24 07:00] VITALS: BP 145/83
--- NOTE | 2021-10-24 07:39 | NUR ---
Patient in room JUAN M 351. I have received report from Adeola and had the opportunity to ask questions and assume patient care.
[2021-10-24] MEDS: azithromycin 250mg tablet PO SCH (08:45)
[2021-10-24] MEDS: docusate sod 100mg capsule PO SCH ×2 (08:45→19:32)
[2021-10-24] MEDS: atorvastatin 10mg tablet PO SCH (08:47)
[2021-10-24] MEDS: pantoprazole 40mg Tablet.DR PO SCH (08:47)
[2021-10-24] MEDS: furosemide 40mg/4ml inj IV SCH (08:47)
[2021-10-24] MEDS: isosorbide mononitrate 30mg tab.SR.24H PO SCH ×2 (08:47→19:32)
[2021-10-24] MEDS: metoprolol tartrate 50mg tablet PO SCH ×2 (08:47→19:32)
[2021-10-24] MEDS: cefTRIAXone 1g/NS 100ml IVPB 100 ML IV SCH (08:48)
[2021-10-24] MEDS: insulin Lispro (HumaLOG) vial - multi-dose SQ SCH ×2 (09:09→14:22)
[2021-10-24] MEDS: PEG 400/HYPROMELLOSE/GLYCERIN 15ml bottle EACHEYE PRN (09:10)
[2021-10-24] MEDS: sodium ferric gluc complex inj 125 MG in normal saline 100ml IV soln 100 ML IV SCH (10:15)
[2021-10-24 11:00] VITALS: BP 129/51
--- NOTE | 2021-10-24 11:04 | NUR ---
Per Dr Hina de la rosa to restart patient on Eliquis home dose 5mg po BID
[2021-10-24] MEDS: apixaban 5mg tablet PO SCH ×2 (11:14→19:32)
--- NOTE | 2021-10-24 15:24 | NUR ---
DM Consult: Pt admit DX R lower lobe PNA possible aspiration, microcytic anemia, and acute on chronic respiratory failure w/ hx T2DM A1C 8.7% per EMR. RD notified MD recommends [employer] BSS if agreeable given potential aspiration per MD note. Written DM ed w/ RD contact information placed in pt chart. Addendum: 10/24/21 at [address] Amended: Links added.
[2021-10-24 18:00] VITALS: BP 163/84
--- NOTE | 2021-10-24 18:12 | NUR ---
Problems reprioritized. Patient report given, questions answered & plan of care reviewed with Prudence RN.
--- NOTE | 2021-10-24 18:18 | NUR ---
Problems reprioritized. Patient report given, questions answered & plan of care reviewed with GRACIELA Mir.
--- NOTE | 2021-10-24 18:59 | NUR ---
Patient in room JUAN M 351. I have received report from VIVIENNE OWENS and had the opportunity to ask questions and assume patient care.
[2021-10-24] MEDS: insulin glargine (Lantus) pen - multi-dose SQ SCH (21:00)
[2021-10-24] MEDS: gabapentin 100mg capsule PO SCH (22:18)
[2021-10-25] MEDS: acetaminophen 325mg tablet PO PRN ×2 (00:14→16:51)
[2021-10-25 00:35] VITALS: BP 158/61
[2021-10-25] MEDS: ipratropium/albuterol 3ml nebule NEB SCH ×7 (03:00→23:00)
[2021-10-25 06:14] LABS: BASOPHILS % (AUTO) 0.6 % (0-1); EOSINOPHILS # (AUTO) 0.1 X10'3 (0-0.9); EOSINOPHILS % (AUTO) 1.8 % (0-6); HEMATOCRIT 27.8 % (35.0-45.0); HEMOGLOBIN 8.4 g/dl (12.0-16.0); LYMPHOCYTES # (AUTO) 1.2 X10'3 (1.1-4.8); LYMPHOCYTES % (AUTO) 16.3 % (21-51); MEAN CORPUSCULAR HEMOGLOBIN 20.6 PG (27.0-31.0); MEAN CORPUSCULAR HGB CONC 30.1 g/dL (33.0-36.5); MEAN CORPUSCULAR VOLUME 68.3 FL (78-98); MEAN PLATELET VOLUME 7.7 FL (7.4-10.4); MONOCYTES # (AUTO) 1.6 X10'3 (0-0.9); MONOCYTES % (AUTO) 21.8 % (2-12); NEUTROPHILS # (AUTO) 4.5 X10'3 (1.8-7.7); NEUTROPHILS % (AUTO) 59.5 % (42-75); PLATELET COUNT 249 X10'3 (140-440); RED BLOOD COUNT 4.07 X10'6 (4.20-5.60); RED CELL DISTRIBUTION WIDTH 18.9 % (11.5-14.5); WHITE BLOOD COUNT 7.6 X10'3 (4.5-11.0)
[2021-10-25 06:20] LABS: ALANINE AMINOTRANSFERASE 16 U/L (12-78); ALBUMIN 2.9 G/DL (3.4-5.0); ALBUMIN/GLOBULIN RATIO 0.8 (1.1-1.5); ALKALINE PHOSPHATASE 75 IU/L (46-116); ANION GAP 4 (8-16); ASPARTATE AMINO TRANSFERASE 24 U/L (10-37); BILIRUBIN,TOTAL 0.5 MG/DL (0.1-1.0); BLOOD UREA NITROGEN 24 MG/DL (7-18); BUN/CREATININE RATIO 32.4 (6.6-38.0); CALCIUM 8.3 MG/DL (8.5-10.1); CHLORIDE 105 MMOL/L (99-107); CREATININE 0.74 MG/DL (0.40-0.90); GLUCOSE 126 MG/DL (70-104); MAGNESIUM 2.1 MG/DL (1.5-2.4); PHOSPHORUS 3.3 MG/DL (2.3-4.5); POTASSIUM 4.1 MMOL/L (3.5-5.1); SODIUM 140 MMOL/L (135-145); TOTAL CARBON DIOXIDE 30.9 MMOL/L (24-32); TOTAL PROTEIN 6.4 G/DL (6.4-8.2); eGFR 74 ML/MIN
--- NOTE | 2021-10-25 06:27 | NUR ---
Problems reprioritized. Patient report given, questions answered & plan of care reviewed with MATT OWENS.
--- NOTE | 2021-10-25 06:35 | NUR ---
Patient in room JUAN M 351. I have received report from GRACIELA Mir and had the opportunity to ask questions and assume patient care.
[2021-10-25 07:00] VITALS: BP_SYST 154; BP_SYST 96; BP_DIAS 68; BP_DIAS 72
[2021-10-25 07:25] LABS: ANISOCYTOSIS 2+; ELLIPTOCYTES 1+; LARGE PLATELETS FEW; MICROCYTOSIS 2+; PLATELET ESTIMATE NORMAL; POIKILOCYTOSIS FEW; POLYCHROMASIA FEW
[2021-10-25] MEDS: metoprolol tartrate 50mg tablet PO SCH ×2 (07:54→19:26)
[2021-10-25] MEDS: furosemide 40mg/4ml inj IV SCH ×2 (07:54→19:25)
[2021-10-25] MEDS: pantoprazole 40mg Tablet.DR PO SCH (07:54)
[2021-10-25] MEDS: cefTRIAXone 1g/NS 100ml IVPB 100 ML IV SCH (07:54)
[2021-10-25] MEDS: apixaban 5mg tablet PO SCH ×2 (07:54→19:26)
[2021-10-25] MEDS: docusate sod 100mg capsule PO SCH ×2 (07:55→19:25)
[2021-10-25] MEDS: atorvastatin 10mg tablet PO SCH (07:55)
[2021-10-25] MEDS: azithromycin 250mg tablet PO SCH (07:55)
[2021-10-25] MEDS: isosorbide mononitrate 30mg tab.SR.24H PO SCH ×2 (07:55→19:26)
[2021-10-25] MEDS: sodium ferric gluc complex inj 125 MG in normal saline 100ml IV soln 100 ML IV SCH (09:36)
[2021-10-25 11:00] VITALS: BP 141/59
[2021-10-25] MEDS: insulin Lispro (HumaLOG) vial - multi-dose SQ SCH ×2 (14:14→19:31)
[2021-10-25] MEDS ORDERED: furosemide 10 MG/1 ML 10ml inj IV ONE (14:15)
[2021-10-25] MEDS: ascorbic acid 500mg tablet PO SCH (16:51)
--- NOTE | 2021-10-25 18:35 | NUR ---
Patient in room JUAN M 351. I have received report from MATT OWENS and had the opportunity to ask questions and assume patient care.
--- NOTE | 2021-10-25 18:54 | NUR ---
Problems reprioritized. Patient report given, questions answered & plan of care reviewed with GRACIELA Mir.
[2021-10-25 19:00] VITALS: BP 117/89
[2021-10-25] MEDS: PEG 400/HYPROMELLOSE/GLYCERIN 15ml bottle EACHEYE PRN (19:31)
[2021-10-25] MEDS: gabapentin 100mg capsule PO SCH (21:19)
[2021-10-25] MEDS: insulin glargine (Lantus) pen - multi-dose SQ SCH (21:21)
[2021-10-26 00:55] VITALS: BP 122/60
[2021-10-26] MEDS: ipratropium/albuterol 3ml nebule NEB SCH ×6 (03:00→23:10)
--- NOTE | 2021-10-26 06:14 | NUR ---
Problems reprioritized. Patient report given, questions answered & plan of care reviewed with MATT OWENS.
--- NOTE | 2021-10-26 06:44 | NUR ---
Patient in room JUAN M 351. I have received report from GRACIELA Mir and had the opportunity to ask questions and assume patient care.
[2021-10-26 07:00] VITALS: BP 142/68
[2021-10-26 07:06] LABS: HEMATOCRIT 28.4 % (35.0-45.0); HEMOGLOBIN 8.8 g/dl (12.0-16.0); MEAN CORPUSCULAR VOLUME 68.8 FL (78-98); MEAN PLATELET VOLUME 7.4 FL (7.4-10.4)
[2021-10-26 07:08] LABS: BASOPHILS # (AUTO) 0.1 X10'3 (0-0.2); BASOPHILS % (AUTO) 0.7 % (0-1); EOSINOPHILS # (AUTO) 0.3 X10'3 (0-0.9); EOSINOPHILS % (AUTO) 4.2 % (0-6); LYMPHOCYTES # (AUTO) 1.5 X10'3 (1.1-4.8); LYMPHOCYTES % (AUTO) 20.5 % (21-51); MEAN CORPUSCULAR HEMOGLOBIN 21.3 PG (27.0-31.0); MONOCYTES # (AUTO) 1.5 X10'3 (0-0.9); MONOCYTES % (AUTO) 20.4 % (2-12); NEUTROPHILS # (AUTO) 3.9 X10'3 (1.8-7.7); NEUTROPHILS % (AUTO) 54.2 % (42-75); PLATELET COUNT 256 X10'3 (140-440); RED BLOOD COUNT 4.14 X10'6 (4.20-5.60); RED CELL DISTRIBUTION WIDTH 18.6 % (11.5-14.5); WHITE BLOOD COUNT 7.2 X10'3 (4.5-11.0)
[2021-10-26 07:23] LABS: ALANINE AMINOTRANSFERASE 20 U/L (12-78); ALBUMIN 2.9 G/DL (3.4-5.0); ALBUMIN/GLOBULIN RATIO 0.8 (1.1-1.5); ALKALINE PHOSPHATASE 80 IU/L (46-116); ANION GAP 4 (8-16); ASPARTATE AMINO TRANSFERASE 26 U/L (10-37); BILIRUBIN,TOTAL 0.5 MG/DL (0.1-1.0); BLOOD UREA NITROGEN 24 MG/DL (7-18); BUN/CREATININE RATIO 32.9 (6.6-38.0); CALCIUM 8.1 MG/DL (8.5-10.1); CHLORIDE 103 MMOL/L (99-107); CREATININE 0.73 MG/DL (0.40-0.90); GLUCOSE 125 MG/DL (70-104); MAGNESIUM 2.1 MG/DL (1.5-2.4); PHOSPHORUS 3.6 MG/DL (2.3-4.5); POTASSIUM 4.7 MMOL/L (3.5-5.1); SODIUM 139 MMOL/L (135-145); TOTAL CARBON DIOXIDE 31.9 MMOL/L (24-32); TOTAL PROTEIN 6.6 G/DL (6.4-8.2); eGFR 75 ML/MIN
[2021-10-26] MEDS: furosemide 40mg/4ml inj IV SCH ×2 (07:34→20:20)
[2021-10-26] MEDS: pantoprazole 40mg Tablet.DR PO SCH (07:34)
[2021-10-26] MEDS: isosorbide mononitrate 30mg tab.SR.24H PO SCH ×2 (07:34→20:20)
[2021-10-26] MEDS: ascorbic acid 500mg tablet PO SCH ×2 (07:34→17:39)
[2021-10-26] MEDS: apixaban 5mg tablet PO SCH ×2 (07:34→20:20)
[2021-10-26] MEDS: atorvastatin 10mg tablet PO SCH (07:34)
[2021-10-26] MEDS: docusate sod 100mg capsule PO SCH ×2 (07:34→20:20)
[2021-10-26] MEDS: metoprolol tartrate 50mg tablet PO SCH ×2 (07:36→20:20)
[2021-10-26] MEDS: IRON,CARBONYL (45 MG ELEMENTAL IRON) SR.TABLET PO SCH (07:38)
--- NOTE | 2021-10-26 10:06 | NUR ---
Initial: Pt admit DX R lower lobe PNA possible aspiration, microcytic anemia, and acute on chronic respiratory failure per EMR. Currently on Carb controlled diet w/ mostly 100% intake of meals meeting est nutrient needs, though pending BSS. LBM 10/23 receiving routine colace. No nutrition intervention implemented at this time, will continue to monitor. Recs: 1. Continue Carb controlled diet as tolerated; pending BSS 2. Bowel care per rx 3. Scaled wts Addendum: 10/26/21 at [address] Amended: Links added.
[2021-10-26] MEDS: acetaminophen 325mg tablet PO PRN (10:37)
[2021-10-26] MEDS: cefTRIAXone 1g/NS 100ml IVPB 100 ML IV SCH (10:44)
[2021-10-26 11:00] VITALS: BP 114/52
--- NOTE | 2021-10-26 12:28 | NUR ---
After daughter Sonja came up to the nurses station stating that she is thinking about calling a rapid on her mother, Dr. Santamaria paged and requested a blood gas be ordered. VSS currently are 116/50, HR 70. Will update primary RN when she is off break.
[2021-10-26 14:38] LABS: ABG HCO3 32.6 mmol/L (22.0-26.0); ABG OXYGEN SATURATION 95.5 % (94-97); ABG PCO2 (T) 66.8 mmHg (32.0-45.0); ABG PO2 (T) 83.4 mmHg (75.0-100.0); ALLEN'S TEST POSITIVE; FCOHb 0.3 % (0.0-3.9); FLOW 2 L/min; FMetHb 0.4 % (0.0-1.5); FO2Hb 94.8 % (94-97); TOTAL HEMOGLOBIN 9.5 G/dl (12.0-16.0)
[2021-10-26] MEDS ORDERED: iohexol 350MG/ML 100ml bottle IV ONE (15:00)
[2021-10-26] MEDS ORDERED: methylPREDNISolone sod succ 125mg/2ml vial IV ONE (15:00)
--- NOTE | 2021-10-26 15:45 | NUR ---
BG indicated acidosis with increased Bicarb. ordered Bipap to improve it. Pt sent via gurney to CT for CTA to r/o PE. Pt will be tx to PCU [address] Dtr took all belongings. Chart and meds delivered to PCU after report called to GRACIELA Houser.
--- NOTE | 2021-10-26 16:13 | NUR ---
page to respiratory 3010 Ranjit. Patient is in room. Can you please put patient on bipap. Thanks Corrina [phone]
[2021-10-26 16:15] VITALS: BP 135/52
[2021-10-26 18:00] VITALS: BP 135/52
[2021-10-26] MEDS: NUT.TX.GLUC.INTOLER,LAC-FR,SOY (GLUCERNA) 237 ML PO SCH (18:05)
--- NOTE | 2021-10-26 18:51 | NUR ---
Problems reprioritized. Patient report given, questions answered & plan of care reviewed with Kin OWENS.
[2021-10-26] MEDS ORDERED: methylPREDNISolone sod succ 125mg/2ml vial IV SCH (20:00)
[2021-10-26] MEDS: gabapentin 100mg capsule PO SCH (20:20)
[2021-10-26] MEDS: insulin glargine (Lantus) pen - multi-dose SQ SCH (20:46)
[2021-10-26 20:58] LABS: ABG BASE EXCESS 4.2 mmol/L (-2.0-2.0); ABG HCO3 30.7 mmol/L (22.0-26.0); ABG OXYGEN SATURATION 97.4 % (94-97); ABG PCO2 (T) 57.1 mmHg (32.0-45.0); ABG PO2 (T) 98.6 mmHg (75.0-100.0); ALLEN'S TEST POSITIVE; FMetHb 0.5 % (0.0-1.5); FO2Hb 96.9 % (94-97); TOTAL HEMOGLOBIN 9.7 G/dl (12.0-16.0)
[2021-10-26 22:00] VITALS: BP 107/42
[2021-10-27] VITALS (8 sets, daily range): BP systolic 113–135; BP diastolic 44–64
[2021-10-27] MEDS: azithromycin/NS 500mg/250ml 250 ML IV SCH ×2 (00:15→13:52)
[2021-10-27] MEDS: piperacillin/tazo 3.375gm/50ml 50 ML IV SCH ×4 (01:23→23:43)
[2021-10-27] MEDS: ipratropium/albuterol 3ml nebule NEB SCH ×6 (03:19→23:43)
[2021-10-27 07:05] LABS: BASOPHILS % (AUTO) 0.2 % (0-1); EOSINOPHILS % (AUTO) 0 % (0-6); HEMATOCRIT 27.1 % (35.0-45.0); HEMOGLOBIN 8.4 g/dl (12.0-16.0); LYMPHOCYTES # (AUTO) 0.7 X10'3 (1.1-4.8); LYMPHOCYTES % (AUTO) 28.6 % (21-51); MEAN CORPUSCULAR HEMOGLOBIN 21.4 PG (27.0-31.0); MEAN CORPUSCULAR HGB CONC 30.9 g/dL (33.0-36.5); MEAN CORPUSCULAR VOLUME 69.4 FL (78-98); MEAN PLATELET VOLUME 7.5 FL (7.4-10.4); MONOCYTES # (AUTO) 0.3 X10'3 (0-0.9); MONOCYTES % (AUTO) 12.4 % (2-12); NEUTROPHILS # (AUTO) 1.5 X10'3 (1.8-7.7); NEUTROPHILS % (AUTO) 58.8 % (42-75); PLATELET COUNT 200 X10'3 (140-440); RED CELL DISTRIBUTION WIDTH 19.1 % (11.5-14.5); WHITE BLOOD COUNT 2.5 X10'3 (4.5-11.0)
[2021-10-27 07:27] LABS: ALANINE AMINOTRANSFERASE 15 U/L (12-78); ALBUMIN 2.5 G/DL (3.4-5.0); ALBUMIN/GLOBULIN RATIO 0.8 (1.1-1.5); ALKALINE PHOSPHATASE 71 IU/L (46-116); ANION GAP 5 (8-16); ASPARTATE AMINO TRANSFERASE 25 U/L (10-37); BILIRUBIN,TOTAL 0.5 MG/DL (0.1-1.0); BLOOD UREA NITROGEN 33 MG/DL (7-18); BUN/CREATININE RATIO 37.1 (6.6-38.0); CHLORIDE 102 MMOL/L (99-107); CREATININE 0.89 MG/DL (0.40-0.90); GLUCOSE 244 MG/DL (70-104); MAGNESIUM 2.1 MG/DL (1.5-2.4); PHOSPHORUS 4.3 MG/DL (2.3-4.5); POTASSIUM 4.2 MMOL/L (3.5-5.1); SODIUM 137 MMOL/L (135-145); TOTAL CARBON DIOXIDE 30.2 MMOL/L (24-32); TOTAL PROTEIN 5.8 G/DL (6.4-8.2); eGFR 60 ML/MIN
[2021-10-27] MEDS: NUT.TX.GLUC.INTOLER,LAC-FR,SOY (GLUCERNA) 237 ML PO SCH ×3 (08:00→18:31)
[2021-10-27] MEDS: IRON,CARBONYL (45 MG ELEMENTAL IRON) SR.TABLET PO SCH (08:00)
[2021-10-27] MEDS: furosemide 40mg/4ml inj IV SCH ×2 (09:09→19:27)
[2021-10-27] MEDS: methylPREDNISolone sod succ/PF 40mg inj. IV SCH ×2 (09:09→19:25)
[2021-10-27] MEDS: apixaban 5mg tablet PO SCH ×2 (09:09→19:24)
[2021-10-27] MEDS: ascorbic acid 500mg tablet PO SCH ×2 (09:09→16:51)
[2021-10-27] MEDS: metoprolol tartrate 50mg tablet PO SCH ×2 (09:10→19:25)
[2021-10-27] MEDS: pantoprazole 40mg Tablet.DR PO SCH (09:10)
[2021-10-27] MEDS: atorvastatin 10mg tablet PO SCH (09:10)
[2021-10-27] MEDS: isosorbide mononitrate 30mg tab.SR.24H PO SCH ×2 (09:10→19:24)
[2021-10-27] MEDS: docusate sod 100mg capsule PO SCH ×2 (09:14→19:24)
[2021-10-27] MEDS: insulin Lispro (HumaLOG) vial - multi-dose SQ SCH ×3 (09:21→19:33)
[2021-10-27 11:14] LABS: PLEURAL FLUID PH 7.403 (7.63-7.65)
[2021-10-27 11:15] LABS: BFSOURCE RIGHT PLEURAL FLD
[2021-10-27 11:28] LABS: BFAPPEAR CLEAR
[2021-10-27 11:29] LABS: BF MESOTHELIAL CELLS FEW; BF RBC COUNT 380 /CU MM; BF WBC COUNT 335 /CU MM (0-1000); BFCOLOR YELLOW; BFVOLUME 53 ML; LYMPHOCYTES,BODY FLUID 94 %; MONOCYTES,BODY FLUID 4 %; NEUTROPHILS,BODY FLUID 2 %
[2021-10-27 12:01] LABS: GLUCOSE,BODY FLUID 262 MG/DL; LDH,BODY FLUID 63 U/L
[2021-10-27 12:26] LABS: TOTAL PROTEIN,BODY FLUID < 2.0 G/DL
[2021-10-27 13:02] LABS: ABG BASE EXCESS 2.9 mmol/L (-2.0-2.0); ABG HCO3 28.7 mmol/L (22.0-26.0); ABG OXYGEN SATURATION 95.1 % (94-97); ABG PCO2 (T) 50.8 mmHg (32.0-45.0); ALLEN'S TEST POSITIVE; FCOHb 0.6 % (0.0-3.9); FLOW 2 L/min; FMetHb 0.2 % (0.0-1.5); FO2Hb 94.3 % (94-97); TOTAL HEMOGLOBIN 9.3 G/dl (12.0-16.0)
[2021-10-27 13:54] LABS: TOTAL CELLS COUNTED 100
[2021-10-27 13:55] LABS: ANISOCYTOSIS 2+; MICROCYTOSIS 2+; PLATELET ESTIMATE NORMAL
[2021-10-27 13:56] LABS: ELLIPTOCYTES 1+; HYPOCHROMASIA 1+; POLYCHROMASIA 1+; SCHISTOCYTES 1+; TEAR DROP CELLS FEW
[2021-10-27] MEDS: acetaminophen 325mg tablet PO PRN ×2 (16:51→23:44)
--- NOTE | 2021-10-27 18:31 | NUR ---
Problems reprioritized. Patient report given, questions answered & plan of care reviewed with Maggie OWENS.
--- NOTE | 2021-10-27 18:34 | NUR ---
Patient in room PCU 3010. I have received report from Corrina OWENS and had the opportunity to ask questions and assume patient care.
[2021-10-27] MEDS: gabapentin 100mg capsule PO SCH (21:26)
[2021-10-27] MEDS: insulin glargine (Lantus) pen - multi-dose SQ SCH (21:32)
[2021-10-27] MEDS: PEG 400/HYPROMELLOSE/GLYCERIN 15ml bottle EACHEYE PRN (22:25)
[2021-10-28] VITALS (7 sets, daily range): BP systolic 113–128; BP diastolic 41–67
[2021-10-28] MEDS: ipratropium/albuterol 3ml nebule NEB SCH ×6 (03:31→23:36)
--- NOTE | 2021-10-28 06:00 | NUR ---
Patient in room PCU 3010. I have received report from Maggie OWENS and had the opportunity to ask questions and assume patient care.
[2021-10-28 06:08] LABS: BASOPHILS % (AUTO) 0.1 % (0-1); EOSINOPHILS % (AUTO) 0 % (0-6); HEMATOCRIT 27.5 % (35.0-45.0); HEMOGLOBIN 8.3 g/dl (12.0-16.0); LYMPHOCYTES # (AUTO) 0.9 X10'3 (1.1-4.8); MEAN CORPUSCULAR HEMOGLOBIN 20.7 PG (27.0-31.0); MEAN CORPUSCULAR HGB CONC 30.2 g/dL (33.0-36.5); MEAN CORPUSCULAR VOLUME 68.5 FL (78-98); MEAN PLATELET VOLUME 7.7 FL (7.4-10.4); MONOCYTES # (AUTO) 0.9 X10'3 (0-0.9); MONOCYTES % (AUTO) 17.3 % (2-12); NEUTROPHILS # (AUTO) 3.3 X10'3 (1.8-7.7); NEUTROPHILS % (AUTO) 65.6 % (42-75); PLATELET COUNT 230 X10'3 (140-440); RED BLOOD COUNT 4.01 X10'6 (4.20-5.60); RED CELL DISTRIBUTION WIDTH 19.1 % (11.5-14.5)
[2021-10-28 06:17] LABS: ALANINE AMINOTRANSFERASE 12 U/L (12-78); ALBUMIN 2.4 G/DL (3.4-5.0); ALBUMIN/GLOBULIN RATIO 0.7 (1.1-1.5); ALKALINE PHOSPHATASE 63 IU/L (46-116); ANION GAP 7 (8-16); ASPARTATE AMINO TRANSFERASE 20 U/L (10-37); BILIRUBIN,TOTAL 0.5 MG/DL (0.1-1.0); BLOOD UREA NITROGEN 49 MG/DL (7-18); BUN/CREATININE RATIO 40.8 (6.6-38.0); CALCIUM 8.5 MG/DL (8.5-10.1); CHLORIDE 101 MMOL/L (99-107); GLUCOSE 106 MG/DL (70-104); MAGNESIUM 2.1 MG/DL (1.5-2.4); PHOSPHORUS 3.9 MG/DL (2.3-4.5); POTASSIUM 4.1 MMOL/L (3.5-5.1); SODIUM 137 MMOL/L (135-145); TOTAL PROTEIN 5.7 G/DL (6.4-8.2); eGFR 42 ML/MIN
--- NOTE | 2021-10-28 07:12 | NUR ---
Paged Dr. Isbell regarding patient HR and BP and having pauses less than 2 seconds but more frequent. PAGER ID: [phone] MESSAGE: Ann1, Power William. Pt is on Cardizem drip at 10mg/hr. Pt still in afib HR 54, BP 81/52, she is having pauses less than 2 seconds but more frequent. [facility] [id number].
[2021-10-28 07:25] LABS: TOTAL CELLS COUNTED 100
[2021-10-28 07:26] LABS: ACANTHOCYTES FEW; ANISOCYTOSIS 2+; ELLIPTOCYTES 1+; LARGE PLATELETS FEW; MICROCYTOSIS 2+; PLATELET ESTIMATE NORMAL; POLYCHROMASIA 1+
[2021-10-28] MEDS: IRON,CARBONYL (45 MG ELEMENTAL IRON) SR.TABLET PO SCH (08:00)
[2021-10-28] MEDS: NUT.TX.GLUC.INTOLER,LAC-FR,SOY (GLUCERNA) 237 ML PO SCH ×5 (08:00→20:31)
[2021-10-28] MEDS: ascorbic acid 500mg tablet PO SCH ×2 (08:30→17:30)
[2021-10-28] MEDS: furosemide 40mg/4ml inj IV SCH ×2 (10:20→20:22)
[2021-10-28] MEDS: methylPREDNISolone sod succ/PF 40mg inj. IV SCH ×2 (10:20→20:22)
[2021-10-28] MEDS: azithromycin/NS 500mg/250ml 250 ML IV SCH (10:20)
[2021-10-28] MEDS: isosorbide mononitrate 30mg tab.SR.24H PO SCH ×2 (10:22→20:22)
[2021-10-28] MEDS: docusate sod 100mg capsule PO SCH ×2 (10:23→20:22)
[2021-10-28] MEDS: apixaban 5mg tablet PO SCH ×2 (10:23→20:22)
[2021-10-28] MEDS: atorvastatin 10mg tablet PO SCH (10:23)
[2021-10-28] MEDS: pantoprazole 40mg Tablet.DR PO SCH (10:23)
[2021-10-28] MEDS: metoprolol tartrate 50mg tablet PO SCH ×2 (10:25→20:23)
[2021-10-28] MEDS: piperacillin/tazo 3.375gm/50ml 50 ML IV SCH ×3 (13:07→23:10)
[2021-10-28] MEDS: insulin Lispro (HumaLOG) vial - multi-dose SQ SCH ×2 (13:50→21:31)
--- NOTE | 2021-10-28 18:26 | NUR ---
Problems reprioritized. Patient report given, questions answered & plan of care reviewed with Bo Rn, pt stable at transfer of care.
[2021-10-28] MEDS: gabapentin 100mg capsule PO SCH (20:23)
[2021-10-28] MEDS: insulin glargine (Lantus) pen - multi-dose SQ SCH (21:30)
[2021-10-28] MEDS: acetaminophen 325mg tablet PO PRN (23:07)
[2021-10-29 02:00] VITALS: BP 104/50
[2021-10-29] MEDS: ipratropium/albuterol 3ml nebule NEB SCH ×3 (03:05→10:37)
--- NOTE | 2021-10-29 03:49 | NUR ---
This is a 89-year-old female, admitted 10/22/2021, day 13 of hospitalization. Full code, No restraints, no isolation, allergies to Sulfa. This patient presents with a history of multiple medical problems including chronic respiratory failure on home oxygen with no history of tobacco abuse in the past, never smoker, history of dyslipidemia, hypertension, diabetes mellitus type 2, history of atrial fibrillation on Eliquis at home history of CHF ejection fraction 57% June 2021, history of left lower leg open wound, after home mild trauma, history of pulmonary hypertension, anemia, hemoglobin 7.8, multiple allergies, presented today to emergency department chief complaint shortness of breath; who was brought in by EMS complaining of difficulty breathing, with minimal physical activity; patient states that 3 days ago she had chills and abdominal pain and began having a productive cough yesterday. Patient reports that she has a high white mucus production with coughing. Patient is usually on 2 L of O2 at night. Patient's daughter reports that the patient became lethargic today and she noticed her O2 saturation was 87% on room air so she put her on her oxygen. Patient has been given 1 dose of doxycycline for urinary tract infection. Patient does have a wound to the left ankle from her walker which is treated by [facility]. Patient does have a history of CHF and is on Lasix. Patient is on Eliquis and is followed by Dr. Donnelly for her CHF.Patient denies any other associated symptoms at this time. Patient denies any other alleviating or exacerbating factors. Currently, afebrile, Pt is AAO with periods of mild confusion, moves all extremities, follows all commands, notable generalized weakness. Telemonitor #68, HR 68 AF, 104/50, fair pulses, trace edema. IVF infusing via RFA #20. RR 16 clear diminished equal, symmetrical, non labored. PO 98% RA. Hypoactive bowel sounds, large round obese abdomen, no BM. Carb control diet. Fairly tolerated. Pt has Glucerna drink fairly tolerated. Glucose checks AC/HS, Level 6, HS glucose was 379 coverage and Lantus given. Pt given Lasix, voided approx 1800 CYU via Purewick. Left ankle with small wound, dressed with Xeroform and cling. dressing done on day shift. Dressing CDI, no drainage noted. Pt remains safe, continue to monitor. Addendum: 10/29/21 at 0511 by Clive Ascencio RN Correction Day 7 of hospitalization.
[2021-10-29 06:00] VITALS: BP 112/49
[2021-10-29] MEDS ORDERED: azithromycin 250mg tablet PO SCH (08:00)
[2021-10-29] MEDS: piperacillin/tazo 3.375gm/50ml 50 ML IV SCH (08:11)
[2021-10-29] MEDS: IRON,CARBONYL (45 MG ELEMENTAL IRON) SR.TABLET PO SCH (08:12)
[2021-10-29] MEDS: pantoprazole 40mg Tablet.DR PO SCH (08:12)
[2021-10-29] MEDS: methylPREDNISolone sod succ/PF 40mg inj. IV SCH (08:12)
[2021-10-29] MEDS: metoprolol tartrate 50mg tablet PO SCH (08:13)
[2021-10-29] MEDS: docusate sod 100mg capsule PO SCH (08:14)
[2021-10-29] MEDS: atorvastatin 10mg tablet PO SCH (08:14)
[2021-10-29] MEDS: ascorbic acid 500mg tablet PO SCH (08:14)
[2021-10-29] MEDS: isosorbide mononitrate 30mg tab.SR.24H PO SCH (08:14)
[2021-10-29] MEDS: furosemide 40mg/4ml inj IV SCH (08:14)
[2021-10-29] MEDS: apixaban 5mg tablet PO SCH (08:17)
[2021-10-29] MEDS ORDERED: ALBU8.5H17 INH (10:07)
[2021-10-29] MEDS ORDERED: FURO-150 PO (10:07)
[2021-10-29] MEDS ORDERED: CEFD300C3 PO (10:07)
[2021-10-29] MEDS ORDERED: PANT40TA54 PO (10:07)
[2021-10-29] MEDS ORDERED: FERR325T28 PO (10:07)
[2021-10-29] MEDS ORDERED: ASCO-134 PO (10:07)
[2021-10-29] MEDS ORDERED: PRED10TA23 PO (10:07)
[2021-10-29 11:00] VITALS: BP 135/53
[2021-10-29] MEDS: insulin Lispro (HumaLOG) vial - multi-dose SQ SCH (11:02)
--- NOTE | 2021-10-29 12:28 | NUR ---
Patient is stable for discharge per Dr. Santamaria orders. All discharge instructions reviewed with patient and all questions answered. New prescriptions sent electronically. Patient medications retrieved from pharmacy. PIV discontinued. radiation monitor discontinued. Belongings collected and sent with patient. Mode of transportation via private vehicle. Wheeled to lobby.
[2021-10-31] MEDS ORDERED: PRED10TA PO (10:55)
[2021-10-31] MEDS ORDERED: FERR325T29 PO (10:55)
[2021-10-31] MEDS ORDERED: ASCO500T23 PO (10:55)
[2021-10-31] MEDS ORDERED: PANT-47 PO (10:55)
[2021-10-31] MEDS ORDERED: ALBU8.5H17 INH (10:55)
[2021-10-31] MEDS ORDERED: FURO-150 PO (10:55)
[2021-10-31] MEDS ORDERED: CEFD300C21 PO (10:56)
[2021-11-03] MEDS ORDERED: TAM75C PO (13:38)
[2021-11-03] MEDS ORDERED: VALA500T41 PO (13:38)
[2021-11-03] MEDS ORDERED: GUAI600T45 PO (13:38)
[2021-11-03] MEDS ORDERED: BENZ-69 PO (13:38)
== END 2021-10-29 12:15 | disposition home health service (06) | DRG 177 ==
LOC: ER 18:59 → ED HOLD 22:41 → SUR 3N 10-23 07:15 → PCU 3S 10-26 15:50
PROVIDERS: ADMIT Family Medicine; ATTEND Family Medicine
PROC: 30233N1 Transfusion of Nonautologous Red Blood Cells into Peripheral Vein, Percutaneous Approach (ICD-10-PCS; 2021-10-23)
PROC: 5A09357 Assistance with Respiratory Ventilation, Less than 24 Consecutive Hours, Continuous Positive Airway Pressure (ICD-10-PCS; 2021-10-26)
PROC: B32T1ZZ Computerized Tomography (CT Scan) of Left Pulmonary Artery using Low Osmolar Contrast (ICD-10-PCS; 2021-10-26)
PROC: B3201ZZ Computerized Tomography (CT Scan) of Thoracic Aorta using Low Osmolar Contrast (ICD-10-PCS; 2021-10-26)
PROC: B32S1ZZ Computerized Tomography (CT Scan) of Right Pulmonary Artery using Low Osmolar Contrast (ICD-10-PCS; 2021-10-26)
PROC: 0W9B3ZX Drainage of Left Pleural Cavity, Percutaneous Approach, Diagnostic (ICD-10-PCS; principal; 2021-10-27)
PROC: 0W993ZX Drainage of Right Pleural Cavity, Percutaneous Approach, Diagnostic (ICD-10-PCS; 2021-10-27)
PROC: 5A09357 Assistance with Respiratory Ventilation, Less than 24 Consecutive Hours, Continuous Positive Airway Pressure (ICD-10-PCS; 2021-10-27)
DX: J69.0 Pneumonitis due to inhalation of food and vomit (principal); I50.33 Acute on chronic diastolic (congestive) heart failure; J96.20 Acute and chronic respiratory failure, unspecified whether with hypoxia or hypercapnia; I48.20 Chronic atrial fibrillation, unspecified; J91.8 Pleural effusion in other conditions classified elsewhere; I11.0 Hypertensive heart disease with heart failure; Z60.2 Problems related to living alone; G89.29 Other chronic pain; Z20.822 Contact with and (suspected) exposure to COVID-19; M54.9 Dorsalgia, unspecified; R19.5 Other fecal abnormalities; X58.XXXA Exposure to other specified factors, initial encounter; I27.20 Pulmonary hypertension, unspecified; D50.9 Iron deficiency anemia, unspecified; S81.802A Unspecified open wound, left lower leg, initial encounter; E11.9 Type 2 diabetes mellitus without complications; E78.00 Pure hypercholesterolemia, unspecified; E78.5 Hyperlipidemia, unspecified; Z79.01 Long term (current) use of anticoagulants; Z99.81 Dependence on supplemental oxygen; Z88.5 Allergy status to narcotic agent; Z88.2 Allergy status to sulfonamides; Y93.89 Activity, other specified; Y92.89 Other specified places as the place of occurrence of the external cause; Y99.8 Other external cause status; Z79.899 Other long term (current) drug therapy
CPT/HCPCS: 32555; 36415; 36430; 36600; 71045; 71275; 80053; 82272; 82728; 82803; 82945; 82948; 83036; 83540; 83550; 83615; 83735; 83880; 83986; 84100; 84157; 84443; 84484; 85007; 85008; 85018; 85025; 85027; 85610; 85730; 86885; 86900; 86901; 86920; 87070; 87081; 87635; 88108; 88305; 89051; 92508; 92616; 93005; 93306; 94640; 94660; 94667; 94760; 97110; 97116; 97161; 97530; 99285; C9803; G0378; J0456; J0696; J1100; J1815; J1940; J2543; J2916; J2920; J2930; J3490; P9016; Q9967

== ENCOUNTER 2022-10-23 08:53 | Emergency (ER) | payer MEDICARE, BC ==
[~2022-10-23] VITALS: Ht 162.6 cm; Wt 75.0 kg
[~2022-10-23 08:53] MED LIST changes: +ALBU8.5H17 INH; +ASCO500T23 PO; -CARB15DR58 EACHEYE; -DEXA6TAB6 PO; +FERR240T5 PO; -FURO-150 PO; +FURO40TA4 PO; -LOSA100T57 PO; +METO-395 PO; -METO50TA16 PO; +POTA-206 PO; -POTA10CA44 PO; +POTA10CA45 PO; +PRED10TA PO
[2022-10-23 10:45] LABS: BASOPHILS # (AUTO) 0.1 X10'3 (0-0.2); BASOPHILS % (AUTO) 0.6 % (0-1); EOSINOPHILS # (AUTO) 0.2 X10'3 (0-0.9); EOSINOPHILS % (AUTO) 1.5 % (0-6); HEMATOCRIT 22.4 % (35.0-45.0); LYMPHOCYTES # (AUTO) 1.1 X10'3 (1.1-4.8); LYMPHOCYTES % (AUTO) 10.3 % (21-51); MEAN CORPUSCULAR HEMOGLOBIN 22.5 PG (27.0-31.0); MEAN CORPUSCULAR HGB CONC 31.1 g/dL (33.0-36.5); MEAN CORPUSCULAR VOLUME 72.4 FL (78-98); MEAN PLATELET VOLUME 7.6 FL (7.4-10.4); MONOCYTES % (AUTO) 9.8 % (2-12); NEUTROPHILS # (AUTO) 8.1 X10'3 (1.8-7.7); NEUTROPHILS % (AUTO) 77.8 % (42-75); PLATELET COUNT 267 X10'3 (140-440); RED BLOOD COUNT 3.09 X10'6 (4.20-5.60); RED CELL DISTRIBUTION WIDTH 16.8 % (11.5-14.5); WHITE BLOOD COUNT 10.4 X10'3 (4.5-11.0)
[2022-10-23 10:50] LABS: HEMOGLOBIN 6.9 g/dl (12.0-16.0)
[2022-10-23 10:57] LABS: ALANINE AMINOTRANSFERASE 15 U/L (12-78); ALBUMIN 3.4 G/DL (3.4-5.0); ALBUMIN/GLOBULIN RATIO 1.1 (1.1-1.5); ALKALINE PHOSPHATASE 86 IU/L (46-116); ANION GAP 9 (8-16); ASPARTATE AMINO TRANSFERASE 16 U/L (10-37); BILIRUBIN,TOTAL 0.7 MG/DL (0.1-1.0); BLOOD UREA NITROGEN 27 MG/DL (7-18); CALCIUM 9.3 MG/DL (8.5-10.1); CHLORIDE 103 MMOL/L (99-107); CREATININE 0.93 MG/DL (0.40-0.90); GLUCOSE 289 MG/DL (70-104); POTASSIUM 4.6 MMOL/L (3.5-5.1); SODIUM 140 MMOL/L (135-145); TOTAL PROTEIN 6.5 G/DL (6.4-8.2); eGFR 57 ML/MIN
--- NOTE | 2022-10-23 11:03 | NUR ---
pt needing use restroom. a pure wick has been placed.
[2022-10-23 11:59] VITALS: BP 116/48
--- NOTE | 2022-10-23 11:59 | NUR ---
STARTED 1 UNIT OF PRBC.
[2022-10-23 12:13] VITALS: BP 123/52
[2022-10-23 12:48] VITALS: BP 117/50
--- NOTE | 2022-10-23 12:49 | NUR ---
NO ADVERESE REACTION FROM BT,DAUGHTER AT BEDSIDE.
[2022-10-23] MEDS ORDERED: CEPH-585 PO (12:53)
[2022-10-23] MEDS ORDERED: cephalexin 250mg capsule PO ONE (12:55)
[2022-10-23] MEDS ORDERED: furosemide 20 MG/2 ML vial IV ONE (13:00)
[2022-10-23 13:45] VITALS: BP 120/49
[2022-10-23 14:00] VITALS: BP 127/51
[2022-10-23 14:25] VITALS: BP 127/51
--- NOTE | 2022-10-23 14:30 | NUR ---
Attempted to call child/shelton but no answer.Message left.
== END 2022-10-23 15:00 | disposition home or self-care (01) ==
LOC: ER 08:54
DX: D64.9 Anemia, unspecified (principal); R60.0 Localized edema; I11.9 Hypertensive heart disease without heart failure; I50.9 Heart failure, unspecified; E11.9 Type 2 diabetes mellitus without complications; G89.29 Other chronic pain; M54.9 Dorsalgia, unspecified; Z88.2 Allergy status to sulfonamides; Z88.8 Allergy status to other drugs, medicaments and biological substances; Z88.1 Allergy status to other antibiotic agents; Z79.899 Other long term (current) drug therapy; Z88.5 Allergy status to narcotic agent; Z79.82 Long term (current) use of aspirin
CPT/HCPCS: 36415; 36430; 80053; 85025; 86885; 86900; 86901; 86920; 96374; 99285; J1940; J7040; P9016